=== PATIENT | female | born 1965 | race Caucasian/White ===

== ENCOUNTER 2017-03-17 16:05 | Emergency (ER) | payer MEDICAID ==
[~2017-03-17] VITALS: Ht 154.9 cm; Wt 55.3 kg
[~2017-03-17 16:05] MED LIST: ALBUAER3 IN; ATOR10TA52 PO; FENO1TAB42 PO; INSUINJ47 IJ; LIS20T PO; OMEP20CA74 PO; PIOG15TA46 OR; TICA90TA PO
[2017-03-17] MEDS ORDERED: cloNIDine HCL 0.1 MG TAB ONE (16:19)
[2017-03-17] MEDS ORDERED: cloNIDine HCL 0.1 MG TAB PO ONE (16:30)
[2017-03-17 17:31] LABS: Basophils # (auto) 0 uL; Basophils % (auto) 0.1 % (0.0-2.0); Eosinophils # (auto) 0 uL; Eosinophils % (auto) 0.6 % (0.0-7.0); Hematocrit 36.4 % (36.0-46.0); Lymphocytes # (auto) 1.8 uL; Lymphocytes % (auto) 40.1 % (10.0-50.0); Mean Corpuscular Hemoglobin 29.7 pg (28.0-32.0); Mean Corpuscular Volume 89.9 fL (80.0-100.0); Monocytes # (auto) 0.4 uL; Monocytes % (auto) 8.3 % (0.0-12.0); Neutrophils # (auto) 2.3 uL; Neutrophils % (auto) 50.9 % (37.0-80.0); Nucleated Red Blood Cells % 0.1 %; Platelet Count (auto) 133 10^3/uL (140-450); Red Blood Cells 4.04 10^6/uL (4.0-5.20); Red Cell Distribution Width 13.5 % (11.8-14.3); White Blood Cell 4.5 10^3/uL (4.4-10.8)
[2017-03-17 18:16] LABS: Albumin 3.3 g/dL (3.4-5.0); BUN/Creatinine Ratio 14.1; Bilirubin, Total 0.2 mg/dL (0.2-1.0); Calcium 8.5 mg/dL (8.5-10.1); Potassium 3.4 mmol/L (3.5-5.1); Total Protein 8.2 g/dL (6.4-8.2)
[2017-03-17 18:49] VITALS: BP 140/70
[2017-03-17 19:29] LABS: Urine Bacteria FEW /hpf (None Seen); Urine Blood Negative /uL (Negative); Urine Hyaline Cast FEW /lpf (0 - 2); Urine Specific Gravity 1.015 (1.001-1.035); Urine WBC 2 /hpf (0 - 5)
== END 2017-03-17 20:03 | disposition left against medical advice (07) ==
LOC: ER 16:05
DX: R11.2 Nausea with vomiting, unspecified (principal); R05 Cough; Z53.21 Procedure and treatment not carried out due to patient leaving prior to being seen by health care provider
CPT/HCPCS: 36415; 80053; 81001; 85025

== ENCOUNTER 2019-06-10 18:23 | Inpatient (IN) | payer MEDICAID ==
[~2019-06-10] VITALS: Ht 152.4 cm; Wt 58.0 kg
[~2019-06-10 18:23] MED LIST changes: +FENO145T27 PO; -FENO1TAB42 PO; -INSUINJ47 IJ; +INSUINJ47 SC; -PIOG15TA46 OR; +PIOG1TAB36 OR
[2019-06-10] MEDS ORDERED: cloNIDine HCL 0.1 MG TAB PO ONE (19:15)
[2019-06-10 19:55] LABS: Basophils # (auto) 0 10 ^3/uL (0-0.2); Basophils % (auto) 0.5 % (0.0-2.0); Eosinophils # (auto) 0 10 ^3/uL (0-0.8); Eosinophils % (auto) 0.4 % (0.0-7.0); Hemoglobin 10.8 g/dL (12.2-16.2); Lymphocytes # (auto) 1.1 10 ^3/uL (0.4-5.4); Lymphocytes % (auto) 15.1 % (10.0-50.0); Mean Corpuscular Hemoglobin 29.1 pg (28.0-32.0); Mean Corpuscular Hgb Conc. 32.8 g/dL (32.0-36.0); Mean Corpuscular Volume 88.6 fL (80.0-100.0); Monocytes # (auto) 0.4 10 ^3/uL (0-1.3); Monocytes % (auto) 5.7 % (0.0-12.0); Neutrophils # (auto) 5.7 10 ^3/uL (1.6-8.6); Neutrophils % (auto) 78.3 % (37.0-80.0); Nucleated Red Blood Cells % 0.1 %; Platelet Count (auto) 139 10^3/uL (140-450); Red Blood Cells 3.72 10^6/uL (4.0-5.20); Red Cell Distribution Width 13.9 % (11.8-14.3); White Blood Cell 7.3 10^3/uL (4.4-10.8)
[2019-06-10 20:08] LABS: Calcium 8.2 mg/dL (8.5-10.1); Potassium 3.6 mmol/L (3.5-5.1)
[2019-06-10 20:12] LABS: INR 1.03 (0.9-1.15); Partial Thromboplastin Time 26.2 sec (23.64-32.05)
[2019-06-10 20:27] LABS: Bilirubin, Total 0.3 mg/dL (0.2-1.0); Total Protein 7.2 g/dL (6.4-8.2)
[2019-06-10] MEDS ORDERED: FUROSEMIDE 20 MG/2 ML VIAL ONE (21:43)
[2019-06-10] MEDS ORDERED: FUROSEMIDE 100 MG/10ML VIAL IV ONE (21:45)
[2019-06-10] MEDS ORDERED: AZITHROMYCIN 500MG/ 250ML 250 ML IV ONE (21:45)
[2019-06-10] MEDS ORDERED: cefTRIAXone 1GM/50ML D5W 50 ML IV ONE (21:45)
[2019-06-10] MEDS ORDERED: ENOXAPARIN SOD 60 MG/0.6 ML SYRINGE SC ONE (21:45)
[2019-06-10 22:06] LABS: Urine Bacteria NONE SEEN /hpf (None Seen); Urine Blood 1+ /uL (Negative); Urine Hyaline Cast FEW /lpf (0 - 2); Urine Specific Gravity 1.016 (1.001-1.035); Urine WBC 2 /hpf (0 - 5)
[2019-06-10] MEDS ORDERED: MORPHINE SULF INJ 2 MG/ML SYRINGE 1ML IV PRN (22:30)
[2019-06-10] MEDS ORDERED: DEXTROSE (50%) 50ML SYRG IV PRN (22:30)
[2019-06-10] MEDS ORDERED: TEMAZEPAM 15 MG CAP PO PRN (22:30)
[2019-06-10] MEDS ORDERED: NITROGLYCERIN 0.4 MG SL TAB SL PRN (22:30)
[2019-06-10 23:33] LABS: CRP High Sensitivity 0.34 mg/dL (< 0.3); Magnesium 2.2 mg/dL (1.6-2.6)
[2019-06-10 23:37] VITALS: BP 205/103
[2019-06-11] MEDS ORDERED: POTASSIUM CHL 20MEQ/100ML 100 ML IV SCH
[2019-06-11 00:50] VITALS: BP 142/77
[2019-06-11] MEDS ORDERED: TRAM50TA2 PO (01:07)
[2019-06-11 04:00] VITALS: BP 148/90
[2019-06-11] MEDS: ACCU-CHEK COMFORT CURVE STRIP VI SCH ×5 (05:24→23:59)
[2019-06-11] MEDS: InsuLIN REG 1unit/0.01ml Soln (100units/ml) SC SCH ×4 (05:39→18:00)
[2019-06-11] MEDS ORDERED: ALBUTEROL SULF HFA 90MCG INH 200DOSE IN SCH (06:00)
[2019-06-11] MEDS ORDERED: FUROSEMIDE 20 MG/2 ML VIAL IV SCH (06:00)
[2019-06-11] MEDS ORDERED: ENOXAPARIN SOD 100 MG/1 ML SYRINGE SC ONE (06:15)
[2019-06-11 06:43] LABS: Basophils # (auto) 0 10 ^3/uL (0-0.2); Basophils % (auto) 0.5 % (0.0-2.0); Eosinophils # (auto) 0.1 10 ^3/uL (0-0.8); Eosinophils % (auto) 1.6 % (0.0-7.0); Hematocrit 27.7 % (36.0-46.0); Hemoglobin 9.2 g/dL (12.2-16.2); Lymphocytes # (auto) 1.6 10 ^3/uL (0.4-5.4); Lymphocytes % (auto) 38.7 % (10.0-50.0); Mean Corpuscular Hemoglobin 29.5 pg (28.0-32.0); Mean Corpuscular Hgb Conc. 33.2 g/dL (32.0-36.0); Mean Corpuscular Volume 88.8 fL (80.0-100.0); Monocytes # (auto) 0.4 10 ^3/uL (0-1.3); Neutrophils # (auto) 2.1 10 ^3/uL (1.6-8.6); Neutrophils % (auto) 50.2 % (37.0-80.0); Nucleated Red Blood Cells % 0.1 %; Platelet Count (auto) 115 10^3/uL (140-450); Red Blood Cells 3.13 10^6/uL (4.0-5.20); Red Cell Distribution Width 13.5 % (11.8-14.3); White Blood Cell 4.2 10^3/uL (4.4-10.8)
[2019-06-11 07:02] LABS: Albumin 2.4 g/dL (3.4-5.0); Calcium 7.8 mg/dL (8.5-10.1); Potassium 3.5 mmol/L (3.5-5.1)
[2019-06-11 07:06] LABS: Bilirubin, Total 0.2 mg/dL (0.2-1.0); Total Protein 5.9 g/dL (6.4-8.2)
[2019-06-11 08:00] VITALS: BP 146/79
[2019-06-11] MEDS: cefTRIAXone 1GM/50ML D5W 50 ML IV SCH (09:38)
[2019-06-11] MEDS: TICAGRELOR 90 MG TAB PO SCH ×2 (09:39→22:16)
[2019-06-11] MEDS: AZITHROMYCIN 500MG/ 250ML 250 ML IV SCH (09:39)
[2019-06-11] MEDS ORDERED: PANTOPRAZOLE 40 MG TAB PO SCH (10:00)
[2019-06-11] MEDS ORDERED: ZINC SULFATE 220mg CAP or TAB PO SCH (10:00)
[2019-06-11] MEDS ORDERED: ASPirin 81 mg TAB PO SCH (10:00)
[2019-06-11] MEDS ORDERED: ASCORBIC ACID 1,000 MG TAB PO SCH (10:00)
[2019-06-11] MEDS ORDERED: LISINOPRIL 20 MG TAB PO SCH (10:00)
[2019-06-11] MEDS ORDERED: CHOLECALCIFEROL (VITD3) 1,000IU=25mCg TAB PO SCH (10:00)
[2019-06-11] MEDS ORDERED: [UNRECOGNIZED DRUG - CODE] PO (11:02)
[2019-06-11] MEDS ORDERED: ALBUAER3 IN (11:03)
[2019-06-11] MEDS ORDERED: INSUINJ48 SC (11:05)
[2019-06-11 13:00] VITALS: BP 141/74
[2019-06-11] MEDS ORDERED: ALBUTEROL SULF 2.5 MG/0.5ML(0.5%) NEB SOLN NEB PRN (14:15)
[2019-06-11] MEDS ORDERED: IPRATROPIUM BROM 0.5 MG/2.5ML INH SOL NEB PRN (14:15)
[2019-06-11] MEDS ORDERED: CARVEDILOL 3.125 MG TAB PO ONE (14:15)
[2019-06-11 21:24] VITALS: BP 154/82
[2019-06-11] MEDS: CARVEDILOL 3.125 MG TAB PO SCH (22:15)
[2019-06-11] MEDS: ATORVASTATIN 20 MG TAB PO SCH (22:16)
[2019-06-11] MEDS: ONDANSETRON HCL 4 MG/2 ML VIAL IV PRN (22:17)
[2019-06-12] MEDS: InsuLIN REG 1unit/0.01ml Soln (100units/ml) SC SCH ×2 (00:13→05:45)
[2019-06-12] MEDS: ACCU-CHEK COMFORT CURVE STRIP VI SCH ×2 (00:13→05:44)
[2019-06-12 05:00] VITALS: BP 146/74
[2019-06-12 05:23] LABS: Basophils # (auto) 0 10 ^3/uL (0-0.2); Basophils % (auto) 0.6 % (0.0-2.0); Eosinophils # (auto) 0.1 10 ^3/uL (0-0.8); Eosinophils % (auto) 1.6 % (0.0-7.0); Hemoglobin 9.9 g/dL (12.2-16.2); Lymphocytes # (auto) 1.2 10 ^3/uL (0.4-5.4); Lymphocytes % (auto) 26.4 % (10.0-50.0); Mean Corpuscular Hemoglobin 29.3 pg (28.0-32.0); Mean Corpuscular Volume 88.8 fL (80.0-100.0); Monocytes # (auto) 0.4 10 ^3/uL (0-1.3); Monocytes % (auto) 8.6 % (0.0-12.0); Neutrophils # (auto) 2.8 10 ^3/uL (1.6-8.6); Neutrophils % (auto) 62.8 % (37.0-80.0); Nucleated Red Blood Cells % 0.1 %; Platelet Count (auto) 118 10^3/uL (140-450); Red Blood Cells 3.38 10^6/uL (4.0-5.20); Red Cell Distribution Width 13.6 % (11.8-14.3); White Blood Cell 4.5 10^3/uL (4.4-10.8)
[2019-06-12 05:43] LABS: Calcium 7.8 mg/dL (8.5-10.1); Potassium 3.6 mmol/L (3.5-5.1)
[2019-06-12 05:48] LABS: BUN/Creatinine Ratio 16.7
[2019-06-12] MEDS: cefTRIAXone 1GM/50ML D5W 50 ML IV SCH (07:57)
[2019-06-12 08:52] VITALS: BP 153/77
[2019-06-12] MEDS ORDERED: ADENOSINE 46 MG in GIVE UN-DILUTED 0 ML IV STA (09:59)
[2019-06-12] MEDS ORDERED: PNEUMOCOCCAL VACC POLYS 25 MCG/0.5 ML VIAL IM SCH (10:00)
[2019-06-12] MEDS: TICAGRELOR 90 MG TAB PO SCH ×2 (10:00→21:24)
[2019-06-12] MEDS: CARVEDILOL 3.125 MG TAB PO SCH ×2 (10:00→21:24)
[2019-06-12] MEDS: ASPirin 81 mg TAB PO SCH (10:00)
[2019-06-12] MEDS ORDERED: cloNIDine HCL 0.1 MG TAB PO ONE (11:15)
[2019-06-12 12:23] LABS: Hepatitis B Surface Antibody Positive
[2019-06-12] MEDS: AZITHROMYCIN 500MG/ 250ML 250 ML IV SCH (12:37)
[2019-06-12] MEDS: ENOXAPARIN SOD 30 MG/0.3 ML SYRINGE SC SCH (12:38)
[2019-06-12] MEDS: FUROSEMIDE 100 MG/10ML VIAL IV SCH (12:38)
[2019-06-12 13:01] LABS: Hepatitis A Total Antibody Negative
[2019-06-12 13:09] VITALS: BP 170/87
[2019-06-12 13:23] LABS: Hepatitis B Core Total AB Negative; Hepatitis B Surface Antigen Negative (Negative); Hepatitis C Antibody Negative (Negative)
[2019-06-12 16:39] VITALS: BP 148/80
[2019-06-12] MEDS: ACETAMINOPHEN 325 MG TAB PO PRN (17:42)
[2019-06-12] MEDS ORDERED: amLODIPine BESYLATE 5 MG TAB PO ONE (20:45)
[2019-06-12] MEDS ORDERED: hydrALAZINE HCL 25 MG TAB PO PRN (20:45)
[2019-06-12] MEDS: ATORVASTATIN 20 MG TAB PO SCH (21:22)
[2019-06-12 22:59] VITALS: BP 149/79
[2019-06-13] VITALS (7 sets, daily range): BP systolic 145–189; BP diastolic 78–96
[2019-06-13 04:23] LABS: Amphetamine Screen, Urine NEGATIVE (NEGATIVE); Barbiturate Scree,Urine NEGATIVE (NEGATIVE); Benzodiazephine Screen, Urine NEGATIVE (NEGATIVE); Cannabinoid Screen, Urine NEGATIVE (NEGATIVE); Cocaine Screen, Urine NEGATIVE (NEGATIVE); Opiate Scree,Urine NEGATIVE (NEGATIVE); Phencyclidine Screen, Urine NEGATIVE (NEGATIVE); Protein, Urine 130.2 mg/dL (0.0-11.9)
[2019-06-13 05:19] LABS: Hemoglobin 10.2 g/dL (12.2-16.2)
[2019-06-13 05:31] LABS: Calcium 7.9 mg/dL (8.5-10.1); Potassium 3.4 mmol/L (3.5-5.1)
[2019-06-13] MEDS: cefTRIAXone 1GM/50ML D5W 50 ML IV SCH (09:35)
[2019-06-13] MEDS: ASPirin 81 mg TAB PO SCH (10:00)
[2019-06-13] MEDS: amLODIPine BESYLATE 5 MG TAB PO SCH (10:00)
[2019-06-13] MEDS: CARVEDILOL 3.125 MG TAB PO SCH ×2 (10:00→21:36)
[2019-06-13] MEDS: ENOXAPARIN SOD 30 MG/0.3 ML SYRINGE SC SCH (10:00)
[2019-06-13] MEDS: FAMOTIDINE 20 MG TAB PO SCH (10:00)
[2019-06-13] MEDS: TICAGRELOR 90 MG TAB PO SCH ×2 (10:00→21:29)
[2019-06-13] MEDS: FUROSEMIDE 100 MG/10ML VIAL IV SCH (11:34)
[2019-06-13] MEDS: AZITHROMYCIN 500MG/ 250ML 250 ML IV SCH (11:35)
[2019-06-13] MEDS: ACETAMINOPHEN 325 MG TAB PO PRN (11:44)
[2019-06-13] MEDS ORDERED: POTASSIUM CHL 10 Meq TABLET PO ONE ×2 (12:45→14:30)
[2019-06-13] MEDS: ONDANSETRON HCL 4 MG/2 ML VIAL IV PRN (14:39)
[2019-06-13] MEDS: hydrALAZINE HCL 25 MG TAB PO SCH ×2 (18:01→23:46)
[2019-06-13] MEDS: ATORVASTATIN 20 MG TAB PO SCH (21:29)
[2019-06-14 05:00] VITALS: BP 140/71
[2019-06-14] MEDS: hydrALAZINE HCL 25 MG TAB PO SCH ×2 (05:22→12:37)
[2019-06-14 08:00] VITALS: BP 145/87
[2019-06-14 09:00] VITALS: BP 145/87
[2019-06-14] MEDS: cefTRIAXone 1GM/50ML D5W 50 ML IV SCH (09:26)
[2019-06-14] MEDS: ENOXAPARIN SOD 30 MG/0.3 ML SYRINGE SC SCH (10:00)
[2019-06-14 10:10] LABS: BUN/Creatinine Ratio 16.4; Potassium 3.8 mmol/L (3.5-5.1)
[2019-06-14] MEDS: AZITHROMYCIN 500MG/ 250ML 250 ML IV SCH (10:51)
[2019-06-14] MEDS: FUROSEMIDE 100 MG/10ML VIAL IV SCH (10:51)
[2019-06-14] MEDS: TICAGRELOR 90 MG TAB PO SCH (10:53)
[2019-06-14] MEDS: CARVEDILOL 3.125 MG TAB PO SCH (10:54)
[2019-06-14] MEDS: FAMOTIDINE 20 MG TAB PO SCH (10:55)
[2019-06-14] MEDS: amLODIPine BESYLATE 5 MG TAB PO SCH (10:55)
[2019-06-14 12:42] VITALS: BP 179/90
[2019-06-14 15:29] VITALS: BP 132/68
[2019-06-14 17:00] VITALS: BP 125/60
[2019-06-15] MEDS ORDERED: PANTOPRAZOLE 40 MG TAB PO SCH (10:00)
[2019-06-16 10:15] LABS: Hepatitis B Surface Antibody Positive
[2019-06-16 11:26] LABS: Hepatitis B Surface Antigen Negative (Negative); Hepatitis C Antibody Negative (Negative)
== END 2019-06-14 18:45 | disposition home or self-care (01) | DRG 194 ==
LOC: ER 18:23 → TELE 18:24 → TELE-EAST 23:52 → TELE-CENTR 06-11 17:00
PROVIDERS: ADMIT Nurse Practitioner; ATTEND Internal Medicine
DX: I13.0 Hypertensive heart and chronic kidney disease with heart failure and stage 1 through stage 4 chronic kidney disease, or unspecified chronic kidney disease (principal); J96.20 Acute and chronic respiratory failure, unspecified whether with hypoxia or hypercapnia; I21.A1 Myocardial infarction type 2; N17.0 Acute kidney failure with tubular necrosis; J18.9 Pneumonia, unspecified organism; D61.818 Other pancytopenia; J91.8 Pleural effusion in other conditions classified elsewhere; I50.43 Acute on chronic combined systolic (congestive) and diastolic (congestive) heart failure; E11.22 Type 2 diabetes mellitus with diabetic chronic kidney disease; I25.5 Ischemic cardiomyopathy; N18.4 Chronic kidney disease, stage 4 (severe); I25.10 Atherosclerotic heart disease of native coronary artery without angina pectoris; J45.909 Unspecified asthma, uncomplicated; E78.5 Hyperlipidemia, unspecified; G47.00 Insomnia, unspecified; R63.4 Abnormal weight loss; I16.1 Hypertensive emergency; N13.2 Hydronephrosis with renal and ureteral calculous obstruction; J98.11 Atelectasis; D73.4 Cyst of spleen; B19.10 Unspecified viral hepatitis B without hepatic coma; D63.8 Anemia in other chronic diseases classified elsewhere; E87.6 Hypokalemia; Z88.0 Allergy status to penicillin; Z95.5 Presence of coronary angioplasty implant and graft; Z03.818 Encounter for observation for suspected exposure to other biological agents ruled out; Z88.2 Allergy status to sulfonamides; Z79.899 Other long term (current) drug therapy; Z90.710 Acquired absence of both cervix and uterus; Z82.5 Family history of asthma and other chronic lower respiratory diseases; Z83.3 Family history of diabetes mellitus; Z82.49 Family history of ischemic heart disease and other diseases of the circulatory system; Z82.0 Family history of epilepsy and other diseases of the nervous system; Z87.891 Personal history of nicotine dependence; Z68.25 Body mass index [BMI] 25.0-25.9, adult
CPT/HCPCS: 36415; 71045; 74176; 76775; 78452; 80048; 80053; 80061; 80307; 81001; 82270; 82570; 82728; 82962; 83036; 83540; 83550; 83615; 83735; 83880; 84156; 84443; 84484; 85014; 85018; 85025; 85045; 85379; 85610; 85730; 86038; 86141; 86704; 86706; 86708; 86803; 87040; 87045; 87070; 87340; 87427; 87804; 87880; 93005; 93017; 93306; 93970; 94640; G0378; J0153; J0696; J1815; J2405

== ENCOUNTER 2019-07-09 11:40 | Emergency (ER) | payer MEDICAID ==
[~2019-07-09] VITALS: Ht 154.9 cm; Wt 53.1 kg
[~2019-07-09 11:40] MED LIST changes: +INSUINJ48 SC; -PIOG1TAB36 OR; +PIOG1TAB36 PO; +TRAM50TA2 PO; +[UNRECOGNIZED DRUG - CODE] PO
[2019-07-09 12:06] LABS: Urine WBC None Seen /hpf (0 - 5)
[2019-07-09 12:41] LABS: Urine Bacteria FEW /hpf (None Seen); Urine Blood 1+ /uL (Negative); Urine Hyaline Cast FEW /lpf (0 - 2); Urine Specific Gravity 1.022 (1.001-1.035)
[2019-07-09] MEDS ORDERED: ONDANSETRON ODT 4 MG TAB PO ONE (13:30)
[2019-07-09] MEDS ORDERED: HYDROcodone-ACET 5/325MG TAB PO ONE (13:30)
[2019-07-09] MEDS ORDERED: TAMSULOSIN HYDROCHLORIDE 0.4 MG CAP PO ONE (13:30)
[2019-07-09] MEDS ORDERED: cloNIDine HCL 0.1 MG TAB PO ONE (14:15)
[2019-07-09 15:11] VITALS: BP 156/77
== END 2019-07-09 15:23 | disposition home or self-care (01) ==
LOC: ER 11:40
DX: M54.5 Low back pain (principal); I12.9 Hypertensive chronic kidney disease with stage 1 through stage 4 chronic kidney disease, or unspecified chronic kidney disease; E11.22 Type 2 diabetes mellitus with diabetic chronic kidney disease; N18.9 Chronic kidney disease, unspecified; E78.5 Hyperlipidemia, unspecified; J45.909 Unspecified asthma, uncomplicated; Z87.442 Personal history of urinary calculi; Z90.710 Acquired absence of both cervix and uterus; Z79.4 Long term (current) use of insulin; Z79.899 Other long term (current) drug therapy; Z88.0 Allergy status to penicillin; Z88.2 Allergy status to sulfonamides
CPT/HCPCS: 81001; 99284; Q0162

== ENCOUNTER 2019-07-13 20:05 | Inpatient (IN) | payer MEDICAID ==
[~2019-07-13] VITALS: Ht 154.9 cm; Wt 58.4 kg
[2019-07-13] MEDS ORDERED: cloNIDine HCL 0.1 MG TAB ONE (20:26)
[2019-07-13] MEDS ORDERED: cloNIDine HCL 0.1 MG TAB PO ONE (20:30)
[2019-07-13 20:44] LABS: Basophils # (auto) 0 10 ^3/uL (0-0.2); Basophils % (auto) 0.5 % (0.0-2.0); Eosinophils # (auto) 0 10 ^3/uL (0-0.8); Eosinophils % (auto) 0.2 % (0.0-7.0); Hematocrit 33.2 % (36.0-46.0); Lymphocytes % (auto) 14.3 % (10.0-50.0); Mean Corpuscular Hemoglobin 29.5 pg (28.0-32.0); Mean Corpuscular Hgb Conc. 33.1 g/dL (32.0-36.0); Mean Corpuscular Volume 89.1 fL (80.0-100.0); Monocytes # (auto) 0.5 10 ^3/uL (0-1.3); Monocytes % (auto) 7.2 % (0.0-12.0); Neutrophils # (auto) 5.2 10 ^3/uL (1.6-8.6); Neutrophils % (auto) 77.8 % (37.0-80.0); Platelet Count (auto) 146 10^3/uL (140-450); Red Blood Cells 3.73 10^6/uL (4.0-5.20); Red Cell Distribution Width 14.2 % (11.8-14.3); White Blood Cell 6.7 10^3/uL (4.4-10.8)
[2019-07-13 21:09] LABS: Albumin 3.2 g/dL (3.4-5.0); Calcium 8.2 mg/dL (8.5-10.1); Potassium 3.3 mmol/L (3.5-5.1)
[2019-07-13 21:14] LABS: BUN/Creatinine Ratio 17.2; Bilirubin, Total 0.4 mg/dL (0.2-1.0); Total Protein 7.2 g/dL (6.4-8.2)
[2019-07-13] MEDS ORDERED: FUROSEMIDE 40 MG/4 ML VIAL IV ONE (23:00)
[2019-07-14] MEDS ORDERED: ENOXAPARIN SOD 100 MG/1 ML SYRINGE SC ONE (01:45)
[2019-07-14] MEDS ORDERED: HYDROcodone-ACET 5/325MG TAB PO PRN (02:30)
[2019-07-14] MEDS ORDERED: NITROGLYCERIN 0.4 MG SL TAB SL PRN (02:30)
[2019-07-14] MEDS ORDERED: DEXTROSE (50%) 50ML SYRG IV PRN ×2 (02:30→16:30)
[2019-07-14] MEDS ORDERED: ONDANSETRON HCL 4 MG/2 ML VIAL IV PRN ×2 (02:30)
[2019-07-14] MEDS ORDERED: ACETAMINOPHEN 325 MG TAB PO PRN ×2 (02:30)
[2019-07-14] MEDS ORDERED: DOCUSATE SOD 100 MG CAP PO PRN (02:30)
[2019-07-14] MEDS ORDERED: MORPHINE SULF INJ 2 MG/ML SYRINGE 1ML IV PRN ×2 (02:30)
[2019-07-14 02:46] LABS: INR 1.15 (0.9-1.15); Partial Thromboplastin Time 24.8 sec (23.64-32.05)
[2019-07-14 02:59] LABS: Urine Bacteria FEW /hpf (None Seen); Urine Blood 1+ /uL (Negative); Urine Hyaline Cast MANY /lpf (0 - 2); Urine Specific Gravity 1.019 (1.001-1.035); Urine WBC 2 /hpf (0 - 5)
[2019-07-14] MEDS: SODIUM CHLORIDE 0.9% 1,000 ML IV SCH ×2 (03:49→18:18)
[2019-07-14] MEDS: InsuLIN REG 1unit/0.01ml Soln (100units/ml) SC SCH ×3 (03:50→17:53)
[2019-07-14] MEDS: ACCU-CHEK COMFORT CURVE STRIP VI SCH ×3 (03:50→17:53)
[2019-07-14] MEDS ORDERED: InsuLIN REG 1unit/0.01ml Soln (100units/ml) SC SCH (06:00)
[2019-07-14 10:00] LABS: Magnesium 1.7 mg/dL (1.6-2.6)
[2019-07-14] MEDS ORDERED: OMEPRAZOLE 20MG/10ML ORAL SUSP PO SCH (10:00)
[2019-07-14] MEDS ORDERED: ASPirin 325 MG TAB PO SCH (10:00)
[2019-07-14] MEDS ORDERED: CARVEDILOL 3.125 MG TAB PO SCH (10:00)
[2019-07-14] MEDS ORDERED: CLOPIDOGREL BISULFATE 75 MG TAB PO SCH (10:00)
[2019-07-14] MEDS ORDERED: LISINOPRIL 20 MG TAB PO SCH (10:00)
[2019-07-14] MEDS ORDERED: FUROSEMIDE 40 MG/4 ML VIAL IV SCH (10:00)
[2019-07-14] MEDS: ASPirin 81 mg TAB PO SCH (10:04)
[2019-07-14] MEDS: DOCUSATE SOD 100 MG CAP PO SCH (10:04)
[2019-07-14] MEDS: TICAGRELOR 90 MG TAB PO SCH ×2 (10:05→22:28)
[2019-07-14 10:06] LABS: BUN/Creatinine Ratio 18.1; Calcium 7.9 mg/dL (8.5-10.1); Potassium 3.3 mmol/L (3.5-5.1)
[2019-07-14] MEDS ORDERED: HEPARIN DRIP/D5W 100UNITS/ML 250 ML IV SCH ×2 (10:19→10:45)
[2019-07-14] MEDS ORDERED: NITROGLYCERIN 0.4MG/HR TOPICAL PATCH TD ONE (10:30)
[2019-07-14] MEDS ORDERED: HEPARIN SODIUM (PORCINE) 5000 UNITS/ML 1ML VIAL IV ONE (10:30)
[2019-07-14 10:51] LABS: Protein, Urine 811.9 mg/dL (0.0-11.9)
[2019-07-14] MEDS: ACETYLCYSTEINE ORAL for CIN 20%(200MG/ML) 4ML PO SCH ×2 (11:15→22:29)
[2019-07-14 11:43] LABS: Basophils # (auto) 0 10 ^3/uL (0-0.2); Basophils % (auto) 0.5 % (0.0-2.0); Eosinophils # (auto) 0 10 ^3/uL (0-0.8); Eosinophils % (auto) 0.4 % (0.0-7.0); Hematocrit 29.1 % (36.0-46.0); Hemoglobin 9.8 g/dL (12.2-16.2); Lymphocytes # (auto) 1.2 10 ^3/uL (0.4-5.4); Lymphocytes % (auto) 19.9 % (10.0-50.0); Mean Corpuscular Hgb Conc. 33.8 g/dL (32.0-36.0); Mean Corpuscular Volume 88.7 fL (80.0-100.0); Monocytes # (auto) 0.5 10 ^3/uL (0-1.3); Monocytes % (auto) 7.9 % (0.0-12.0); Neutrophils # (auto) 4.1 10 ^3/uL (1.6-8.6); Neutrophils % (auto) 71.3 % (37.0-80.0); Platelet Count (auto) 113 10^3/uL (140-450); Red Blood Cells 3.28 10^6/uL (4.0-5.20); Red Cell Distribution Width 14.1 % (11.8-14.3); White Blood Cell 5.8 10^3/uL (4.4-10.8)
[2019-07-14] MEDS ORDERED: hydrALAZINE HCL 20 MG/ML VL IV PRN (11:45)
[2019-07-14] MEDS ORDERED: PROMETHAZINE HCL 25 MG/ML 1ML IV ONE (11:45)
[2019-07-14] MEDS ORDERED: MAGNESIUM OXIDE 400 MG TAB PO ONE (11:45)
[2019-07-14] MEDS ORDERED: POTASSIUM CHL 20 Meq TABLET PO ONE ×2 (11:45→15:00)
[2019-07-14 11:59] LABS: INR 1.15 (0.9-1.15); Partial Thromboplastin Time 28.2 sec (23.64-32.05)
[2019-07-14] MEDS ORDERED: LIDOCAINE 2%HCL (LOCAL ANESTH.) INJ 20ML MDV ONE (12:28)
[2019-07-14] MEDS ORDERED: IODIXANOL 320MG/ML 100ML BTL IV ONE ×2 (12:28→12:46)
[2019-07-14] MEDS ORDERED: VERAPAMIL 2.5MG/ML INJ 2ML VIAL IV ONE (12:32)
[2019-07-14] MEDS ORDERED: ANGIOMAX 250 MG VIAL IV ONE (12:32)
[2019-07-14] MEDS ORDERED: MIDAZOLAM HCL 1MG/1ML-2 ML VIAL ONE (12:32)
[2019-07-14] MEDS ORDERED: HEPARIN SODIUM (PORCINE) 5000 UNITS/ML 1ML VIAL ONE (12:32)
[2019-07-14] MEDS ORDERED: fentaNYL CITRATE 100 MCG/2 ML VL ONE (12:32)
[2019-07-14] MEDS ORDERED: SODIUM CHL 0.9% 50 ML ONE (12:32)
[2019-07-14] MEDS ORDERED: hydrALAZINE HCL 20 MG/ML VL ONE (12:41)
[2019-07-14] MEDS ORDERED: diphenhdrAMINE HCL 50 MG/1 ML VL ONE (13:02)
[2019-07-14] MEDS ORDERED: ASPirin 325 MG TAB ONE (13:11)
[2019-07-14] MEDS ORDERED: CLOPIDOGREL BISULFATE 75 MG TAB ONE (13:11)
[2019-07-14] MEDS ORDERED: SODIUM CHL 0.9% 500 ML IV ONE (14:00)
[2019-07-14] MEDS ORDERED: hydrALAZINE HCL 25 MG TAB PO SCH (14:00)
[2019-07-14] MEDS ORDERED: cloNIDine HCL 0.1 MG TAB PO PRN (14:00)
[2019-07-14] MEDS ORDERED: TICA90TA PO (14:26)
[2019-07-14] MEDS ORDERED: InsuLIN REG 1unit/0.01ml Soln (100units/ml) ONE (14:41)
--- NOTE | 2019-07-14 16:17 | NUR ---
Telemetry admit from Hand Paster CARMEN CAVAZOS admitted to Telemetry unit after SBAR received. Patient oriented to Linda Tsang, RN primary RN, unit, room, bed, and unit policies regarding patient care and visiting hours. Patient now on continuous telemetry monitoring, tele box # 94. Patient placed on bedside oxygen, weighed by bedscale and encouraged to call if they need something. All questions and concerns addressed, patient verbalized understanding. Noted right wrist incision, vasc-band is in place. Will proceed to carry out vasc-band instructions as indicated. No sign of bleeding or hematoma formation to site.
[2019-07-14 17:03] VITALS: BP 145/76
[2019-07-14 17:14] VITALS: BP 145/76
--- NOTE | 2019-07-14 18:05 | NUR ---
Spoke to CEREAL SUPERVISOR Florentino Baum in regards to critical lab value Troponin 6.16. CEREAL SUPERVISOR made aware, no new orders received at this time.
--- NOTE | 2019-07-14 19:30 | NUR ---
Opening Shift Note Assumed care of patient, awake and alert. No S/S of distress/SOB or pain. Instructed on POC and to call for assist PRN. Bed in lowest locked position, call light within reach, side rails up x2, fall precautions in place. Will continue to monitor for changes Q1hr and PRN.
[2019-07-14 22:00] VITALS: BP 129/67
[2019-07-14] MEDS ORDERED: ATORVASTATIN 20 MG TAB PO SCH ×2 (22:00)
[2019-07-14] MEDS ORDERED: INSULIN NPH Isophane (HUMAN) 1unit/0.01ml Susp(100units/ml) SC SCH (22:00)
[2019-07-14] MEDS: CARVEDILOL 12.5 MG TAB PO SCH (22:28)
[2019-07-15] MEDS: ACCU-CHEK COMFORT CURVE STRIP VI SCH ×4 (00:01→18:00)
[2019-07-15] MEDS: InsuLIN REG 1unit/0.01ml Soln (100units/ml) SC SCH ×4 (00:03→18:00)
--- NOTE | 2019-07-15 02:40 | NUR ---
Critical lab Elevated troponin of 5.78. Spoke with hospitalist, STEPHANIE Jhaveri. Hospitalist aware of troponin trending down. No new orders received. Continue care.
--- NOTE | 2019-07-15 04:06 | NUR ---
Blood sugar Patient complaining of feeling diaphoretic. Blood sugar checked, low at 63. Juice and sandwich given. Will continue to monitor.
[2019-07-15 05:00] VITALS: BP 116/61
[2019-07-15 06:40] LABS: Basophils # (auto) 0 10 ^3/uL (0-0.2); Basophils % (auto) 0.3 % (0.0-2.0); Eosinophils # (auto) 0 10 ^3/uL (0-0.8); Eosinophils % (auto) 0.7 % (0.0-7.0); Hematocrit 29.9 % (36.0-46.0); Hemoglobin 9.8 g/dL (12.2-16.2); Lymphocytes # (auto) 0.4 10 ^3/uL (0.4-5.4); Lymphocytes % (auto) 7.2 % (10.0-50.0); Mean Corpuscular Hemoglobin 29.3 pg (28.0-32.0); Mean Corpuscular Hgb Conc. 32.8 g/dL (32.0-36.0); Mean Corpuscular Volume 89.3 fL (80.0-100.0); Monocytes # (auto) 0.4 10 ^3/uL (0-1.3); Monocytes % (auto) 7.3 % (0.0-12.0); Neutrophils # (auto) 5.1 10 ^3/uL (1.6-8.6); Neutrophils % (auto) 84.5 % (37.0-80.0); Platelet Count (auto) 124 10^3/uL (140-450); Red Blood Cells 3.35 10^6/uL (4.0-5.20); Red Cell Distribution Width 14.3 % (11.8-14.3)
[2019-07-15 07:05] LABS: Potassium 3.1 mmol/L (3.5-5.1)
[2019-07-15 07:15] LABS: BUN/Creatinine Ratio 17.3; Calcium 8.2 mg/dL (8.5-10.1)
--- NOTE | 2019-07-15 07:30 | NUR ---
Opening Shift Note Assumed care of patient, awake, alert oriented x4. No S/S of distress/SOB, reports 10/10 headache and requesting tylenol. Instructed on POC and to call for assist PRN. Bed in lowest locked position, call light within reach, side rails up x2, fall precautions in place. Will continue to monitor for changes Q1hr and PRN.
[2019-07-15 08:00] VITALS: BP 133/71
[2019-07-15] MEDS ORDERED: POTASSIUM CHL 20 Meq TABLET PO ONE (08:15)
[2019-07-15] MEDS: DOCUSATE SOD 100 MG CAP PO SCH (10:00)
[2019-07-15] MEDS ORDERED: NITROGLYCERIN 0.4MG/HR TOPICAL PATCH TD SCH (10:00)
[2019-07-15] MEDS ORDERED: ACETYLCYSTEINE ORAL for CIN 20%(200MG/ML) 4ML PO SCH (10:00)
[2019-07-15] MEDS ORDERED: amLODIPine BESYLATE 5 MG TAB PO SCH (10:00)
[2019-07-15] MEDS ORDERED: KETOROLAC TROMETH 30 MG/ML 1ML VIAL IV ONE (10:30)
[2019-07-15] MEDS: ASPirin 81 mg TAB PO SCH (10:39)
[2019-07-15] MEDS: TICAGRELOR 90 MG TAB PO SCH (10:39)
[2019-07-15] MEDS: CARVEDILOL 12.5 MG TAB PO SCH (10:39)
[2019-07-15] MEDS: ACETYLCYSTEINE ORAL for CIN 20%(200MG/ML) 4ML PO SCH (10:40)
[2019-07-15] MEDS ORDERED: ATOR40TA52 PO (10:47)
[2019-07-15] MEDS ORDERED: CARV25TA PO (10:47)
[2019-07-15] MEDS ORDERED: ASPI81CH43 PO (10:47)
[2019-07-15] MEDS ORDERED: AMLO10TA13 PO (10:47)
[2019-07-15] MEDS ORDERED: PANT40TA2 PO (10:51)
[2019-07-15] MEDS ORDERED: CLO01T PO (11:10)
[2019-07-15] MEDS: SODIUM CHLORIDE 0.9% 1,000 ML IV SCH (11:43)
--- NOTE | 2019-07-15 12:20 | NUR ---
graf catheter discontinued at this time. Will continue to monitor q1hr and prn
[2019-07-15 12:37] VITALS: BP 139/76
[2019-07-15 15:39] VITALS: BP 139/76
--- NOTE | 2019-07-15 19:20 | NUR ---
Opening Shift Note Patient awake and alert upon entering room. No S/S of distress/SOB or pain. Instructed on discharge plan in process from anson Mccabe RN. Both IVs discontinued, media monitor sent to color television console monitor, ID bands removed, POM obtained from pharmacy and back in patients possession, and all belongings collected and ready to go.
--- NOTE | 2019-07-15 20:07 | NUR ---
Patient DC'd off unit.
--- NOTE | 2019-07-16 08:11 | NUR ---
0811 07/16/19 Contacted [employer] at [phone] spoke with Harry the management manager, who stated patient did receive life vest prior to discharge.
== END 2019-07-15 20:07 | disposition home or self-care (01) | DRG 174 ==
LOC: ER 20:06 → TELE 20:07 → TELE-CENTR 07-14 16:21
PROVIDERS: ADMIT Hospitalist; ATTEND Internal Medicine
PROC: 4A023N7 Measurement of Cardiac Sampling and Pressure, Left Heart, Percutaneous Approach (ICD-10-PCS; principal; 2019-07-14)
PROC: 027034Z Dilation of Coronary Artery, One Artery with Drug-eluting Intraluminal Device, Percutaneous Approach (ICD-10-PCS; 2019-07-14)
PROC: B211YZZ Fluoroscopy of Multiple Coronary Arteries using Other Contrast (ICD-10-PCS; 2019-07-14)
PROC: B215YZZ Fluoroscopy of Left Heart using Other Contrast (ICD-10-PCS; 2019-07-14)
DX: I21.4 Non-ST elevation (NSTEMI) myocardial infarction (principal); I50.43 Acute on chronic combined systolic (congestive) and diastolic (congestive) heart failure; N17.9 Acute kidney failure, unspecified; E11.22 Type 2 diabetes mellitus with diabetic chronic kidney disease; N18.4 Chronic kidney disease, stage 4 (severe); I13.0 Hypertensive heart and chronic kidney disease with heart failure and stage 1 through stage 4 chronic kidney disease, or unspecified chronic kidney disease; I16.1 Hypertensive emergency; J44.9 Chronic obstructive pulmonary disease, unspecified; E44.1 Mild protein-calorie malnutrition; I16.0 Hypertensive urgency; E87.6 Hypokalemia; Z68.24 Body mass index [BMI] 24.0-24.9, adult; Z88.0 Allergy status to penicillin; Z88.2 Allergy status to sulfonamides; Z79.84 Long term (current) use of oral hypoglycemic drugs; Z79.4 Long term (current) use of insulin; Z79.899 Other long term (current) drug therapy; Z79.51 Long term (current) use of inhaled steroids; D63.8 Anemia in other chronic diseases classified elsewhere; I25.2 Old myocardial infarction; I25.10 Atherosclerotic heart disease of native coronary artery without angina pectoris; E11.65 Type 2 diabetes mellitus with hyperglycemia; Z83.3 Family history of diabetes mellitus; Z82.5 Family history of asthma and other chronic lower respiratory diseases
CPT/HCPCS: 36415; 71045; 80048; 80053; 80061; 81001; 82570; 82962; 83036; 83735; 83880; 84156; 84484; 85025; 85610; 85730; 87081; 92928; 93005; 93458; 96372; 96374; 96375; 99152; 99153; C1874; G0378; J1815; J1885; J2250; J2405; Q9967

== ENCOUNTER 2019-07-21 06:41 | Inpatient (IN) | payer MEDICAID ==
[~2019-07-21] VITALS: Ht 154.9 cm; Wt 62.6 kg
[~2019-07-21 06:41] MED LIST changes: +AMLO10TA13 PO; +ASPI81CH43 PO; -ATOR10TA52 PO; +ATOR40TA52 PO; +CARV25TA PO; +CLO01T PO; -LIS20T PO; -OMEP20CA74 PO; +PANT40TA2 PO; -PIOG1TAB36 PO
[2019-07-21] MEDS ORDERED: SODIUM CHLORIDE 0.9% 1,000 ML IV ONE (06:52)
[2019-07-21] MEDS ORDERED: NITROGLYCERIN 0.4 MG SL TAB SL ONE (07:00)
[2019-07-21 07:50] LABS: Basophils # (auto) 0 10 ^3/uL (0-0.2); Basophils % (auto) 0.5 % (0.0-2.0); Eosinophils # (auto) 0.1 10 ^3/uL (0-0.8); Eosinophils % (auto) 1.7 % (0.0-7.0); Hematocrit 32.4 % (36.0-46.0); Hemoglobin 10.6 g/dL (12.2-16.2); Lymphocytes # (auto) 1.1 10 ^3/uL (0.4-5.4); Lymphocytes % (auto) 24.1 % (10.0-50.0); Mean Corpuscular Hemoglobin 29.2 pg (28.0-32.0); Mean Corpuscular Hgb Conc. 32.7 g/dL (32.0-36.0); Mean Corpuscular Volume 89.4 fL (80.0-100.0); Monocytes # (auto) 0.4 10 ^3/uL (0-1.3); Monocytes % (auto) 8.5 % (0.0-12.0); Neutrophils # (auto) 2.9 10 ^3/uL (1.6-8.6); Neutrophils % (auto) 65.2 % (37.0-80.0); Nucleated Red Blood Cells % 0.1 %; Platelet Count (auto) 129 10^3/uL (140-450); Red Blood Cells 3.63 10^6/uL (4.0-5.20); Red Cell Distribution Width 14.8 % (11.8-14.3); White Blood Cell 4.5 10^3/uL (4.4-10.8)
[2019-07-21 08:05] LABS: INR 1.07 (0.9-1.15); Partial Thromboplastin Time 26.2 sec (23.64-32.05)
[2019-07-21 08:06] LABS: Potassium 4.3 mmol/L (3.5-5.1)
[2019-07-21 08:19] LABS: BUN/Creatinine Ratio 18.6; Bilirubin, Total 0.2 mg/dL (0.2-1.0); Total Protein 6.9 g/dL (6.4-8.2)
[2019-07-21] MEDS ORDERED: ENOXAPARIN SOD 60 MG/0.6 ML SYRINGE SC ONE (08:30)
[2019-07-21] MEDS: TICAGRELOR 90 MG TAB PO SCH ×2 (10:00→21:17)
[2019-07-21] MEDS ORDERED: MORPHINE SULF INJ 2 MG/ML SYRINGE 1ML IV PRN (10:00)
[2019-07-21] MEDS ORDERED: DEXTROSE (50%) 50ML SYRG IV PRN (10:00)
[2019-07-21] MEDS ORDERED: ALBUTEROL SULF 2.5 MG/0.5ML(0.5%) NEB SOLN NEB PRN (10:00)
[2019-07-21] MEDS ORDERED: IPRATROPIUM BROM 0.5 MG/2.5ML INH SOL NEB PRN (10:00)
[2019-07-21] MEDS ORDERED: NITROGLYCERIN 0.4 MG SL TAB SL PRN (10:00)
[2019-07-21] MEDS ORDERED: hydrALAZINE HCL 20 MG/ML VL IV PRN (10:00)
[2019-07-21 10:08] VITALS: BP 137/71
--- NOTE | 2019-07-21 10:47 | NUR ---
Pt Arrived on Unit Pt arrived on unit from ED. Pt is a/ox4 with no s/s of distress or SOB. Pt was able to ambulate to bed with standby assistance. Pt is placed on 3L via NC. Safety measures initiated with call light within reach, bed in lowest position and side rails up. Will continue to monitor.
[2019-07-21] MEDS: ASPirin 81 mg TAB PO SCH (11:03)
[2019-07-21] MEDS: ISOSORBIDE MONONITRATE ER 60 MG TAB PO SCH (11:03)
--- NOTE | 2019-07-21 11:22 | NUR ---
Pt Off Unit for CT A/ox4 upon transfer. Addendum: 07/21/19 at 1137 by KRIS JENSEN RN RN Pt back on unit. A/Ox4
[2019-07-21] MEDS: ACCU-CHEK COMFORT CURVE STRIP VI SCH ×3 (11:23→22:00)
[2019-07-21] MEDS: InsuLIN REG 1unit/0.01ml Soln (100units/ml) SC SCH ×3 (11:35→22:00)
--- NOTE | 2019-07-21 11:47 | NUR ---
Critical Lab Troponin of 0.778 reported by lab; previous trop is 0.763. Paged supervisor travel information center hospitalist Addendum: 07/21/19 at 1152 by KRIS JENSEN RN RN STEPHANIE Good paged back. ELEVATOR REPAIRER HELPER made aware. Pending cardio consult. Will continue to monitor.
[2019-07-21 11:53] VITALS: BP 164/91
[2019-07-21] MEDS ORDERED: FUROSEMIDE 40 MG/4 ML VIAL IV ONE (12:45)
[2019-07-21 13:00] VITALS: BP 127/71
[2019-07-21] MEDS ORDERED: RANOLAZINE ER 500 MG TAB PO ONE (13:00)
--- NOTE | 2019-07-21 13:05 | NUR ---
Pt C/O Generalized Body Aches Pt c/o of generalized body pain 08/14. No pain medication available. Will page hospitalist.
[2019-07-21] MEDS: MORPHINE SULF INJ 2 MG/ML SYRINGE 1ML IV PRN ×3 (13:23→20:18)
[2019-07-21] MEDS: ONDANSETRON HCL 4 MG/2 ML VIAL IV PRN ×2 (13:23→19:48)
[2019-07-21] MEDS: hydrALAZINE HCL 25 MG TAB PO SCH ×2 (13:31→22:00)
--- NOTE | 2019-07-21 14:38 | NUR ---
Elevated Troponin Trop of 0.774 reported by lab. MDs are aware of elevated tropes. Current level is trending down. Will continue to monitor.
[2019-07-21] MEDS: HYDROcodone-ACET 5/325MG TAB PO PRN ×2 (14:53→21:25)
--- NOTE | 2019-07-21 15:02 | NUR ---
ss consult Per ss consult advanced directive information. RN has been provided advanced directive for patient. Addendum: 07/21/19 at 1503 by Hattie ROBERTS Amended: Links added.
--- NOTE | 2019-07-21 15:15 | NUR ---
WALKED TO LAB Addendum: 07/21/19 at 1516 by KRIS JENSEN RN RN UA*
[2019-07-21 16:57] LABS: Urine Bacteria NONE SEEN /hpf (None Seen); Urine Blood Negative /uL (Negative); Urine Hyaline Cast FEW /lpf (0 - 2); Urine Specific Gravity 1.006 (1.001-1.035); Urine WBC 1 /hpf (0 - 5)
[2019-07-21 17:00] VITALS: BP 147/97
[2019-07-21] MEDS: FUROSEMIDE 40 MG/4 ML VIAL IV SCH (17:45)
--- NOTE | 2019-07-21 19:15 | NUR ---
Respiratory note: PT ASSESSED FOR PRN TX. HR 99, RR 18, POX 95% ON RA, BS ARE CLR/DIM. NO SOB OR DISTRESS NOTED AT THIS TIME. NOTIFY PT TO HAVE RT PAGE FOR NEEDED TX.
--- NOTE | 2019-07-21 19:45 | NUR ---
PAIN ASSESSMENT The patient c/o right hip pain which she rates as 10/10. Will treat with PRN morphine.
--- NOTE | 2019-07-21 20:20 | NUR ---
PAIN REASSESSMENT The patient's pain has improved to 6/10. Patient states that her pain is more tolerable after receiving the pain medication.
[2019-07-21] MEDS ORDERED: LORazepam 2MG/ML-1ML VIAL IV PRN (20:45)
[2019-07-21] MEDS: RANOLAZINE ER 500 MG TAB PO SCH (21:18)
--- NOTE | 2019-07-21 21:25 | NUR ---
PAIN ASSESSMENT The patient is requesting more pain medication. Pain is currently 6/10. Will administer [place] for pain control.
[2019-07-21] MEDS: CARVEDILOL 12.5 MG TAB PO SCH (21:26)
--- NOTE | 2019-07-21 21:55 | NUR ---
CRITICAL LAB RECEIVED Received critical lab of elevated trop. Patient's trop is 0.659. Trop is trending downwards. Continuous Still Operator is aware of critical trop. Hospitalist has been paged to report trop value.
[2019-07-21] MEDS: TRICOR 145 MG PO SCH (22:00)
[2019-07-21 22:02] VITALS: BP 152/79
--- NOTE | 2019-07-21 22:20 | NUR ---
HOSPITALIST CALL BACK Hospitalist has been notified about the patient's elevated trop. No new order has been received.
[2019-07-22] MEDS: ONDANSETRON HCL 4 MG/2 ML VIAL IV PRN ×3 (01:03→17:29)
[2019-07-22] MEDS: MORPHINE SULF INJ 2 MG/ML SYRINGE 1ML IV PRN ×4 (01:03→21:22)
[2019-07-22] MEDS: HYDROcodone-ACET 5/325MG TAB PO PRN (04:03)
[2019-07-22 05:26] VITALS: BP 155/95
[2019-07-22] MEDS: hydrALAZINE HCL 25 MG TAB PO SCH ×3 (06:00→22:00)
[2019-07-22] MEDS: FUROSEMIDE 40 MG/4 ML VIAL IV SCH ×2 (06:00→17:28)
--- NOTE | 2019-07-22 06:20 | NUR ---
CRITICAL TROP Received a critical lab call from laboratory. Trop is 0.502. Imaging Scheduler is aware that the patient's trops are trending downward.
[2019-07-22] MEDS: InsuLIN REG 1unit/0.01ml Soln (100units/ml) SC SCH ×4 (06:36→22:00)
[2019-07-22] MEDS: ACCU-CHEK COMFORT CURVE STRIP VI SCH ×4 (06:37→22:00)
--- NOTE | 2019-07-22 08:00 | NUR ---
RECEIVED PATIENT ALERT AND ORIENTED X4, NOT IN DISTRESS, CLEAR LS IN BILATERAL UPPER AND LOWER LUNG LOBES, RR=18 SAT=95% IN RA, DEEP BREATHING AND COUGHING WAS ENCOURAGED, DEMONSTRATED AND VERBALIZED UNDERSTANDING, DENIED CP AND SOB, SR R=66 N TELE MONITOR, ABDOMEN SOFT WITH ACTIVE BS, TOLERATED 100% OF PROVIDED BREAKFAST TRAY, LAST BM=07/20/19 REPORTED, LT. UPPER AND LOWER EXTREMITY MILD WEAKNESS NOTED, SKIN INTACT WARM TO TOUCH, REDIAL AND PEDAL PULSES PALPABLE, CAP REFILL <3 SECONDS, RESTING ON BED AND WATCHING TV AT THIS MOMENT, HEAD OF BED ELEVATED, BED ON LOW POSITION, RAILS UP X2, CALL LIGHT ON REACH, PENDING NEURO CONSULT, MRI OF BRAIN AND CAROTID DOPPLER, WILL CONTINUE MONITORING.
[2019-07-22 08:42] VITALS: BP 126/69
[2019-07-22 09:01] LABS: Basophils # (auto) 0 10 ^3/uL (0-0.2); Basophils % (auto) 0.4 % (0.0-2.0); Eosinophils # (auto) 0 10 ^3/uL (0-0.8); Eosinophils % (auto) 0.2 % (0.0-7.0); Hematocrit 33.5 % (36.0-46.0); Hemoglobin 10.9 g/dL (12.2-16.2); Lymphocytes # (auto) 0.7 10 ^3/uL (0.4-5.4); Lymphocytes % (auto) 9.9 % (10.0-50.0); Mean Corpuscular Hgb Conc. 32.6 g/dL (32.0-36.0); Mean Corpuscular Volume 89.1 fL (80.0-100.0); Monocytes # (auto) 0.3 10 ^3/uL (0-1.3); Monocytes % (auto) 4.7 % (0.0-12.0); Neutrophils # (auto) 5.8 10 ^3/uL (1.6-8.6); Neutrophils % (auto) 84.8 % (37.0-80.0); Nucleated Red Blood Cells % 0.1 %; Platelet Count (auto) 156 10^3/uL (140-450); Red Blood Cells 3.76 10^6/uL (4.0-5.20); Red Cell Distribution Width 14.7 % (11.8-14.3); White Blood Cell 6.8 10^3/uL (4.4-10.8)
[2019-07-22 09:21] LABS: Albumin 3.2 g/dL (3.4-5.0); Calcium 8.5 mg/dL (8.5-10.1); Potassium 3.7 mmol/L (3.5-5.1)
[2019-07-22 09:24] LABS: BUN/Creatinine Ratio 17.7; Bilirubin, Total 0.3 mg/dL (0.2-1.0); Total Protein 7.2 g/dL (6.4-8.2)
[2019-07-22 09:44] LABS: Cholesterol 103 mg/dL (< 200); HDL Cholesterol 47 mg/dL (40-59); LDL Cholesterol 43 mg/dL (< 100); Triglycerides 92 mg/dL (< 150)
--- NOTE | 2019-07-22 09:50 | NUR ---
NOT IN DISTRESS, WENT ON WC TO MRI AND CAME BACK, TOLERATED WELL, WILL CONTINUE FOLLOW UP.
[2019-07-22] MEDS: ASPirin 81 mg TAB PO SCH (10:30)
[2019-07-22] MEDS: TICAGRELOR 90 MG TAB PO SCH ×2 (10:30→22:00)
[2019-07-22] MEDS: CARVEDILOL 12.5 MG TAB PO SCH ×2 (10:31→22:00)
[2019-07-22] MEDS: ISOSORBIDE MONONITRATE ER 60 MG TAB PO SCH (10:32)
[2019-07-22] MEDS: RANOLAZINE ER 500 MG TAB PO SCH ×2 (10:32→22:00)
[2019-07-22] MEDS ORDERED: TAM04C PO (11:37)
[2019-07-22 13:00] VITALS: BP 127/62
--- NOTE | 2019-07-22 14:34 | NUR ---
NOT IN DISTRESS, RESTING AND SLEEPING ON BED, TOLERATING BSC WITH OUT ASSISTANCE WELL, WILL CONTINUE MONITORING.
[2019-07-22 16:36] VITALS: BP 131/72
--- NOTE | 2019-07-22 18:58 | NUR ---
Respiratory note: PT SEEN AND ASSESSED FOR PRN MED TX AT THIS TIME. TX IS NOT INDICATED. PT DENIES HAVING ANY RESPIRATORY DISTRESS. HR 72 RR 18 SP02 93% ON ROOM AIR.
--- NOTE | 2019-07-22 19:23 | NUR ---
NOT IN DISTRESS, DENIED PAIN, SITTING ON BED EATING DINNER, REPORT WAS GIVEN TO THE VET TECH RN.
--- NOTE | 2019-07-22 19:25 | NUR ---
Opening Shift Note Assumed care of patient. Patient is resting comfortably in bed and is easily arousable. No S/S of distress/SOB or pain. Instructed on POC and to call for assist PRN, will continue to monitor for changes Q1hr and PRN.
[2019-07-22] MEDS: TRICOR 145 MG PO SCH (22:00)
[2019-07-22 22:04] VITALS: BP 103/48
[2019-07-23] MEDS: MORPHINE SULF INJ 2 MG/ML SYRINGE 1ML IV PRN (02:00)
[2019-07-23 05:00] VITALS: BP 112/59
[2019-07-23] MEDS: hydrALAZINE HCL 25 MG TAB PO SCH ×3 (06:00→22:14)
[2019-07-23] MEDS: InsuLIN REG 1unit/0.01ml Soln (100units/ml) SC SCH ×4 (06:38→22:00)
[2019-07-23] MEDS: ACCU-CHEK COMFORT CURVE STRIP VI SCH ×4 (06:38→22:16)
--- NOTE | 2019-07-23 08:00 | NUR ---
RECEIVED PATIENT ALERT AND ORIENTED X4, NOT IN DISTRESS, CLEAR LS IN BILATERAL UPPER AND LOWER LUNG LOBES,DEEP BREATHING AND COUGHING ENCOURAGED, DEMONSTRATED AND VERBALIZED UNDERSTANDING, RR=18 SAT=96%, SR ON TELE MONITOR R=72, ABDOMEN SOFT AND ROUND WITH HYPOACTIVE BS, LAST BM=03/23/19 REPORTED, SKIN INTACT WARM TO TOUCH, RADIAL AND PEDAL PULSES PALPABLE, CAP REFILL <3 SECONDS, MILD WEAKNESS ON RT. UPPER AND LOWER EXTREMITIES NOTED, SITTING ON BED EATING BREAKFAST, TOLERATING WELL, PAIN L=2/10 REPORTED, HEAD OF BED ELEVATED, BED ON LOW POSITION, RAILS UP X2, CALL LIGHT ON REACH, WILL CONTINUE MONITORING.
[2019-07-23 08:27] LABS: Calcium 8.7 mg/dL (8.5-10.1); Potassium 3.5 mmol/L (3.5-5.1)
[2019-07-23 08:30] LABS: BUN/Creatinine Ratio 16.6
[2019-07-23 08:46] VITALS: BP 151/77
--- NOTE | 2019-07-23 09:30 | NUR ---
OUT OFF BED ENCOURAGED, REFUSED TO COOPERATED FOR OUT OF BED ASSISTANCE, JERMAIN LAU WAS NOTIFIED, RESTING AND SLEEPING AT THIS MOMENT.
[2019-07-23] MEDS: TICAGRELOR 90 MG TAB PO SCH ×2 (09:36→22:14)
[2019-07-23] MEDS: CARVEDILOL 12.5 MG TAB PO SCH ×2 (09:36→22:15)
[2019-07-23] MEDS: FUROSEMIDE 20 MG/2 ML VIAL IV SCH (09:36)
[2019-07-23] MEDS: ASPirin 81 mg TAB PO SCH (09:36)
[2019-07-23] MEDS: ISOSORBIDE MONONITRATE ER 60 MG TAB PO SCH (09:37)
[2019-07-23] MEDS: HYDROcodone-ACET 5/325MG TAB PO PRN ×2 (09:38→23:05)
[2019-07-23] MEDS: RANOLAZINE ER 500 MG TAB PO SCH ×2 (09:39→22:14)
--- NOTE | 2019-07-23 09:40 | NUR ---
Respiratory note: Assessed pt for prn medneb tx. HR 83, RR 18, SPO2 97% on room air. Breath sounds clear t/o, pt denies SOB, no s/s of respiratory distress noted. Medneb tx not indicated at this time. Pt complaining of chest pain, RN at bedside and aware.
--- NOTE | 2019-07-23 12:30 | NUR ---
AT 0938 C/O GENERALIZED PAIN L=6/10, NORCO PO PRN WAS PROVIDED, AT 1030 PAIN L=4/10, REFUSED ASSISTANCE OUT OF BED TO THE CHAIR, SITTING ON BED EATING LUNCH AT THIS MOMENT, WILL CONTINUE MONITORING.
[2019-07-23 12:44] VITALS: BP 129/68
[2019-07-23 15:02] VITALS: BP 129/68
[2019-07-23 16:37] VITALS: BP 116/72
--- NOTE | 2019-07-23 19:08 | NUR ---
NOT IN DISTRESS, DENIED PAIN, RESTING ON BED, REPORT WAS GIVEN TO THE PRIMER POWDER BLENDER WET RN.
--- NOTE | 2019-07-23 19:10 | NUR ---
Respiratory note: ASSESSED PT FOR PRN TX PT WAS AWAKE AND ALERT, NO RESP DISTRESS NOTED. HR 72, RR 16, SPO2 95% ON ROOM AIR. BS ARE CLEAR, NO INDICATION FOR TX AT THIS TIME. PT KNOWS TO HAVE RT PAGED IF TX IS NEEDED.
--- NOTE | 2019-07-23 19:37 | NUR ---
Opening Shift Note Assumed care of patient, awake and alert. No S/S of distress/SOB or pain. Safety measures in place bed in lowest position, side rails up x2, and call light within reach. Instructed on POC and to call for assist PRN, will continue to monitor for changes Q1hr and PRN. Addendum: 07/24/19 at 0204 by MARIA ALEJANDRA RODRIGUEZ RN RN Patient wearing Life Vest.
--- NOTE | 2019-07-23 20:00 | NUR ---
Patient's Life Vest battery needed to be changed, battery . Patient unaware how to change the battery. Educating patient how to change and charge the battery. Patient states her son changes the battery. Placed social service consult for further patient education.
[2019-07-23 21:57] VITALS: BP 123/69
[2019-07-23] MEDS: TRICOR 145 MG PO SCH (22:00)
[2019-07-24 05:00] VITALS: BP 130/70
[2019-07-24] MEDS: hydrALAZINE HCL 25 MG TAB PO SCH ×2 (05:46→15:02)
[2019-07-24] MEDS: ACCU-CHEK COMFORT CURVE STRIP VI SCH ×3 (06:05→17:00)
[2019-07-24] MEDS: InsuLIN REG 1unit/0.01ml Soln (100units/ml) SC SCH ×3 (06:09→17:00)
[2019-07-24 09:00] VITALS: BP 135/70
[2019-07-24] MEDS ORDERED: LORazepam 2MG/ML-1ML VIAL IV PRN (09:00)
[2019-07-24] MEDS: FUROSEMIDE 20 MG/2 ML VIAL IV SCH (09:49)
[2019-07-24] MEDS: ASPirin 81 mg TAB PO SCH (09:50)
[2019-07-24] MEDS: RANOLAZINE ER 500 MG TAB PO SCH (09:50)
[2019-07-24] MEDS: TICAGRELOR 90 MG TAB PO SCH (09:50)
[2019-07-24] MEDS: CARVEDILOL 12.5 MG TAB PO SCH (09:51)
[2019-07-24] MEDS: ISOSORBIDE MONONITRATE ER 60 MG TAB PO SCH (09:53)
--- NOTE | 2019-07-24 09:58 | NUR ---
SPOKE WITH PATIENT ABOUT [employer]OLL,LIFE VEST. PT REPORTS ZOLL ALREADY SHOWED HER TWICE HOW TO USE LIFE VEST, ONCE IN THE HOSPITAL AND ONCE AT HOME. ASKED PT IF SHE WANTS ZOLL TO COME AGAIN BEFORE SHE GOES HOME FOR ANY QUESTIONS. PT REPORTS SHE KNOWS HOW TO USE AND CHARGE LIFE VEST, AND HER SON KNOWS HOW TO USE IT. SHE REPORTS SHE ASKS FOR HER SONS HELP AT HOME BECAUSE SHE CAN'T SEE VERY WELL. SHE REPORTS NO, SHE DOESN'T NEED ZOLL TO COME. WILL CONTINUE TO MONITOR.
--- NOTE | 2019-07-24 10:47 | NUR ---
PT ZOLL VEST ALARMING, VEST MONITOR REPORTS PT VEST NOT APPLIED RIGHT. READJUSTED PT VEST, VEST STILL ALARMING. CALLED DANIEL AND REQUESTED ZOLL TO COME ASSESS LIFE VEST. DR HALL AND DR VILLALOBOS SAW PATIENT, BOTH AWARE LIFE VEST IS ALARMING. DR VILLALOBOS ASSESSED LIFE VEST LEADS AND WIRES. UNABLE TO FIX. REQUESTS ZOLL ORIENTAL MEDICINE PRACTITIONER TO COME LOOK AT [facility], NOTIFIED MD SANCHEZ ALREADY CALLED. WILL CONTINUE TO MONITOR.
--- NOTE | 2019-07-24 11:28 | NUR ---
BERNARDO FROM [facility] CALLED BACK, HE REPORTS TO CALL CUSTOMER SERVICE NUMBER AND TROUBLESHOOT OVER THE PHONE.
--- NOTE | 2019-07-24 11:48 | NUR ---
CALLED DANIEL AND YOLANDA SHOT LIFE VEST. LIFE VEST RESET BY REMOVING BATTERY AND WITH TECH HELP. TECH REPORTS HE SUBMITTED A WORK ORDER AND A ZOLL REP WILL BE OUT TO CHECK VEST. Addendum: 07/24/19 at 1310 by TIFFANIE LAMAR RN TECH REPORTS HER LIFE VEST IS SENDING DATA TO HIM.
--- NOTE | 2019-07-24 12:14 | NUR ---
Est energy needs [id number] kcal (25-30 kcal/kg BW 62.6kg) Est protein needs 39-50g (0.6-0.8g/kg BW 62.6kg r/t CKD 3 no HD) will reassess prn. Addendum: 07/24/19 at [address] Amended: Links added.
[2019-07-24 12:50] VITALS: BP 135/70
[2019-07-24 13:00] VITALS: BP_SYST 132; BP_SYST 135; BP_DIAS 62; BP_DIAS 69
--- NOTE | 2019-07-24 13:11 | NUR ---
JEANIE ROBERTS SPOKE WITH PATIENT THIS MORNING ON THE PHONE AND ASSESSED HER AT HOME NEEDS.
--- NOTE | 2019-07-24 15:07 | NUR ---
ZOLL LIFE VEST REP HERE. MRA OF THE BRAIN WAS DONE, RESULTS CAME UP, CALLED DR HALL AND NOTIFIED MD OF RESULTS. NOTIFIED MD PT PT CAN AMBULATE TO [facility] BUT HAS NOT WALKED YET. AWARE. DR HALL REPORTS TO CALL DR OVIEDO AND GET NEURO CLEARANCE. CALLED DR OVIEDO, NOTIFIED HIM OF MRA RESULTS, MD AWARE, AND PT IS CLEAR FROM NEURO STANDPOINT.
--- NOTE | 2019-07-24 15:25 | NUR ---
assessment Patient is a 54 year old female who is alert and oriented. Patients cognitive abilities are intact. Prior to admission patient lived home with family and functioned independently. Patient informed me she is able to care for her own ADLs. Per patient she will return home to her prior living arrangements post discharge and family will transport her home. Patient has a fww and a cane for home use. Patient informed me her PCP is Dr Hartman. Patient had a stroke on last admission. Patient has no new deficits. Patient feels safe returning home on discharge. Patient may benefit form home health PT and safety on discharge. I informed patient she has a right to speak to a high school social studies teacher regarding all care. I informed patient she has a right to participate in any and all discharge planning. Patient does not have a POA and advanced directive. I have offered patient information on POA and advanced directives. I informed the patient the advantages and benefits of having an Advanced Directive. Patient verbalized understanding and agreed to discharge plan. Addendum: 07/24/19 at 1532 by Hattie ROBERTS Amended: Links added.
--- NOTE | 2019-07-24 15:40 | NUR ---
WENT TO SPEAK WITH ZOLL REP. ZOLL REP GONE. PT REPORTS ZOLL REP REPORTS LIFE VEST IS WORKING AGAIN.
[2019-07-24] MEDS ORDERED: ISO60SRT PO (16:02)
[2019-07-24] MEDS ORDERED: HYDR-2691 PO (16:02)
[2019-07-24] MEDS ORDERED: RANO500T PO (16:02)
[2019-07-24 16:29] VITALS: BP 135/69
--- NOTE | 2019-07-24 17:30 | NUR ---
Discharge instructions given as ordered. Encourage to follow up with Jack MUÑOZ Zhang and [facility] as instructed. All questions and concerns addressed. Patient verbalized understanding. Medication reconciliation form completed and copy given to patient. IV removed with catheter intact, pressure dressing applied. Telemetry unit returned to ICU. Patient taken to vehicle via wheelchair with all personal belongings, accompanied by staff. No distress noted at time of departure.
--- NOTE | 2019-07-24 17:40 | NUR ---
Pt ambulated to wheel chair from bed stand bye assist. Pt ambulated from wheel chair to car with stand bye assist.
[2019-07-24] MEDS ORDERED: ATORVASTATIN 20 MG TAB PO SCH (22:00)
== END 2019-07-24 17:20 | disposition home or self-care (01) | DRG 194 ==
LOC: ER 06:41 → EDBD 06:41 → TELE 06:42 → TELE-WESTW 11:02
PROVIDERS: ADMIT Nurse Practitioner Acute Care; ATTEND Internal Medicine Nephrology
DX: I13.0 Hypertensive heart and chronic kidney disease with heart failure and stage 1 through stage 4 chronic kidney disease, or unspecified chronic kidney disease (principal); I21.A1 Myocardial infarction type 2; I63.531 Cerebral infarction due to unspecified occlusion or stenosis of right posterior cerebral artery; I50.43 Acute on chronic combined systolic (congestive) and diastolic (congestive) heart failure; N17.0 Acute kidney failure with tubular necrosis; E11.65 Type 2 diabetes mellitus with hyperglycemia; E11.22 Type 2 diabetes mellitus with diabetic chronic kidney disease; D63.8 Anemia in other chronic diseases classified elsewhere; N18.3 Chronic kidney disease, stage 3 (moderate); H53.462 Homonymous bilateral field defects, left side; I16.0 Hypertensive urgency; I25.10 Atherosclerotic heart disease of native coronary artery without angina pectoris; F32.9 Major depressive disorder, single episode, unspecified; G81.94 Hemiplegia, unspecified affecting left nondominant side; E78.5 Hyperlipidemia, unspecified; F17.200 Nicotine dependence, unspecified, uncomplicated; I08.1 Rheumatic disorders of both mitral and tricuspid valves; I70.0 Atherosclerosis of aorta; E78.00 Pure hypercholesterolemia, unspecified; J44.9 Chronic obstructive pulmonary disease, unspecified; Z79.02 Long term (current) use of antithrombotics/antiplatelets; I25.2 Old myocardial infarction; Z79.4 Long term (current) use of insulin; Z79.82 Long term (current) use of aspirin; Z82.0 Family history of epilepsy and other diseases of the nervous system; Z82.49 Family history of ischemic heart disease and other diseases of the circulatory system; Z82.5 Family history of asthma and other chronic lower respiratory diseases; Z83.3 Family history of diabetes mellitus; Z90.710 Acquired absence of both cervix and uterus; Z95.5 Presence of coronary angioplasty implant and graft; Z79.899 Other long term (current) drug therapy
CPT/HCPCS: 36415; 70450; 70545; 70551; 71045; 73030; 80048; 80053; 80061; 81001; 82962; 83036; 84484; 85025; 85610; 85730; 87081; 93005; 93886; 96372; 99291; G0378; J1815; J2405

== ENCOUNTER 2019-11-17 14:48 | Emergency (ER) | payer MEDICAID ==
[~2019-11-17] VITALS: Ht 154.9 cm; Wt 54.9 kg
[~2019-11-17 14:48] MED LIST changes: -CLO01T PO; +HYDR-2691 PO; +ISO60SRT PO; +RANO500T PO; -TRAM50TA2 PO; -[UNRECOGNIZED DRUG - CODE] PO
[2019-11-17 15:41] VITALS: BP 188/85
== END 2019-11-17 20:39 | disposition left against medical advice (07) ==
LOC: ER 14:48
DX: M54.9 Dorsalgia, unspecified (principal); Z53.21 Procedure and treatment not carried out due to patient leaving prior to being seen by health care provider

== ENCOUNTER 2021-12-22 09:22 | Inpatient (IN) | payer MEDICAID ==
[~2021-12-22] VITALS: Ht 160 cm; Wt 58.5 kg
[~2021-12-22 09:22] MED LIST changes: +AMLO-496 PO; -AMLO10TA13 PO; -HYDR-2691 PO; +HYDR25TA87 PO
[2021-12-22 11:05] LABS: Basophils # (auto) 0 10 ^3/uL (0-0.2); Basophils % (auto) 0.3 % (0.0-2.0); Eosinophils # (auto) 0 10 ^3/uL (0-0.8); Eosinophils % (auto) 0.2 % (0.0-7.0); Hematocrit 33.7 % (36.0-46.0); Lymphocytes % (auto) 26.3 % (10.0-50.0); Mean Corpuscular Hemoglobin 29.6 pg (28.0-32.0); Mean Corpuscular Hgb Conc. 32.8 g/dL (32.0-36.0); Mean Corpuscular Volume 90.1 fL (80.0-100.0); Monocytes # (auto) 0.3 10 ^3/uL (0-1.3); Monocytes % (auto) 7.4 % (0.0-12.0); Neutrophils # (auto) 2.6 10 ^3/uL (1.6-8.6); Neutrophils % (auto) 65.8 % (37.0-80.0); Red Blood Cells 3.73 10^6/uL (4.0-5.20); Red Cell Distribution Width 12.9 % (11.8-14.3)
[2021-12-22 11:14] LABS: Albumin 3.6 g/dL (3.4-5.0); BUN/Creatinine Ratio 20.4; Calcium 8.9 mg/dL (8.5-10.1)
[2021-12-22 11:49] LABS: Bilirubin, Total 0.3 mg/dL (0.2-1.0); Total Protein 7.7 g/dL (6.4-8.2)
[2021-12-22] MEDS ORDERED: ENOXAPARIN SOD 60 MG/0.6 ML SYRINGE SC ONE (13:30)
[2021-12-22] MEDS ORDERED: HYDROcodone-ACET 5/325MG TAB PO PRN (22:30)
[2021-12-22] MEDS ORDERED: hydrALAZINE HCL 20 MG/ML VL IV PRN (22:30)
[2021-12-22] MEDS ORDERED: ACETAMINOPHEN 325 MG TAB PO PRN (22:30)
[2021-12-22] MEDS ORDERED: DEXTROSE (50%) 50ML SYRG IV PRN (22:30)
[2021-12-22] MEDS ORDERED: DOCUSATE SOD 100 MG CAP PO PRN (22:30)
[2021-12-22] MEDS ORDERED: ONDANSETRON HCL 4 MG/2 ML VIAL IV PRN (22:30)
[2021-12-22] MEDS ORDERED: MORPHINE SULFATE INJ 2 MG/ml SYRG IV PRN (23:15)
[2021-12-22] MEDS ORDERED: NITROGLYCERIN 0.4 MG SL TAB SL PRN (23:15)
[2021-12-23 01:09] VITALS: BP 180/91
[2021-12-23 05:00] VITALS: BP 131/60
[2021-12-23] MEDS: SODIUM CHLOR 0.9% PF (SALINE LOCK) 10ML VIAL/SYR IV SCH ×3 (06:04→21:47)
[2021-12-23] MEDS: ACCU-CHEK COMFORT CURVE STRIP VI SCH ×4 (06:05→21:42)
[2021-12-23] MEDS: InsuLIN REG 1unit/0.01ml Soln (100units/ml) SC SCH ×4 (06:05→21:42)
[2021-12-23 06:07] LABS: Basophils # (auto) 0 10 ^3/uL (0-0.2); Basophils % (auto) 0.6 % (0.0-2.0); Eosinophils # (auto) 0 10 ^3/uL (0-0.8); Eosinophils % (auto) 0.5 % (0.0-7.0); Hematocrit 30.7 % (36.0-46.0); Hemoglobin 10.2 g/dL (12.2-16.2); Lymphocytes # (auto) 1.3 10 ^3/uL (0.4-5.4); Lymphocytes % (auto) 37.8 % (10.0-50.0); Mean Corpuscular Hemoglobin 29.8 pg (28.0-32.0); Mean Corpuscular Hgb Conc. 33.1 g/dL (32.0-36.0); Mean Corpuscular Volume 90.2 fL (80.0-100.0); Monocytes # (auto) 0.3 10 ^3/uL (0-1.3); Monocytes % (auto) 8.9 % (0.0-12.0); Neutrophils # (auto) 1.8 10 ^3/uL (1.6-8.6); Neutrophils % (auto) 52.2 % (37.0-80.0); Nucleated Red Blood Cells % 0.1 %; Red Cell Distribution Width 13.1 % (11.8-14.3); White Blood Cell 3.4 10^3/uL (4.4-10.8)
[2021-12-23 06:39] LABS: Albumin 3.2 g/dL (3.4-5.0); Calcium 8.2 mg/dL (8.5-10.1); Potassium 3.1 mmol/L (3.5-5.1)
[2021-12-23 06:43] LABS: BUN/Creatinine Ratio 22.6; Bilirubin, Total 0.6 mg/dL (0.2-1.0); Total Protein 6.8 g/dL (6.4-8.2)
[2021-12-23 08:20] VITALS: BP 123/72
[2021-12-23] MEDS ORDERED: HEPARIN SODIUM (PORCINE) 5000 UNITS/ML 1ML VIAL SC SCH (10:00)
[2021-12-23] MEDS ORDERED: FAMOTIDINE (10MG/ML) 2ML VL IV SCH (10:00)
[2021-12-23] MEDS ORDERED: FUROSEMIDE 20 MG/2 ML VIAL IV SCH (10:00)
[2021-12-23] MEDS: CARVEDILOL 12.5 MG TAB PO SCH ×2 (10:36→21:47)
[2021-12-23] MEDS: ASPirin 81 mg TAB PO SCH (10:37)
[2021-12-23 12:15] VITALS: BP 155/89
[2021-12-23] MEDS ORDERED: LOPERAMIDE 1 mg/7.5ml ORAL soln PO ONE (13:00)
[2021-12-23] MEDS ORDERED: POTASSIUM CHL 20 Meq TABLET PO ONE (15:00)
[2021-12-23 16:15] VITALS: BP 158/82
[2021-12-23 22:00] VITALS: BP 155/86
[2021-12-24 05:00] VITALS: BP 145/66
[2021-12-24] MEDS: InsuLIN REG 1unit/0.01ml Soln (100units/ml) SC SCH ×4 (05:35→22:00)
[2021-12-24] MEDS: ACCU-CHEK COMFORT CURVE STRIP VI SCH ×4 (05:35→22:00)
[2021-12-24] MEDS: SODIUM CHLOR 0.9% PF (SALINE LOCK) 10ML VIAL/SYR IV SCH ×3 (05:35→21:48)
[2021-12-24 08:30] VITALS: BP 136/85
[2021-12-24] MEDS ORDERED: FLUT0.05 NAS (09:07)
[2021-12-24] MEDS ORDERED: [UNRECOGNIZED DRUG - CODE] PO (09:11)
[2021-12-24] MEDS: ASPirin 81 mg TAB PO SCH (09:45)
[2021-12-24] MEDS: CARVEDILOL 12.5 MG TAB PO SCH ×2 (09:46→20:33)
[2021-12-24 13:30] VITALS: BP 116/59
[2021-12-24] MEDS: LOPERAMIDE HCL 2 MG CAP/TAB PO PRN ×3 (16:28→19:51)
[2021-12-24 16:30] VITALS: BP 121/56
[2021-12-24 17:25] VITALS: BP 121/56
== END 2021-12-24 22:37 | disposition home health service (06) | DRG 113 ==
LOC: ER 09:22 → TELE 23:17 → TELE-WESTW 23:56
PROVIDERS: ADMIT Nurse Practitioner Family; ATTEND Student in an Organized Health Care Education/Training Program
DX: J06.9 Acute upper respiratory infection, unspecified (principal); N17.9 Acute kidney failure, unspecified; E11.22 Type 2 diabetes mellitus with diabetic chronic kidney disease; I50.9 Heart failure, unspecified; J44.1 Chronic obstructive pulmonary disease with (acute) exacerbation; I13.0 Hypertensive heart and chronic kidney disease with heart failure and stage 1 through stage 4 chronic kidney disease, or unspecified chronic kidney disease; D72.819 Decreased white blood cell count, unspecified; E78.5 Hyperlipidemia, unspecified; R77.8 Other specified abnormalities of plasma proteins; R79.89 Other specified abnormal findings of blood chemistry; Z20.822 Contact with and (suspected) exposure to COVID-19; M16.12 Unilateral primary osteoarthritis, left hip; N18.32 Chronic kidney disease, stage 3b; Z82.0 Family history of epilepsy and other diseases of the nervous system; Z82.49 Family history of ischemic heart disease and other diseases of the circulatory system; Z82.5 Family history of asthma and other chronic lower respiratory diseases; Z83.3 Family history of diabetes mellitus; Z90.710 Acquired absence of both cervix and uterus; Z88.0 Allergy status to penicillin; Z88.2 Allergy status to sulfonamides
CPT/HCPCS: 36415; 71045; 80053; 82962; 83880; 84484; 85025; 85379; 87426; 96372; 96374; G0378; J1815; J3490

== ENCOUNTER 2022-05-18 17:05 | Inpatient (IN) | payer MEDICAID ==
[~2022-05-18] VITALS: Ht 154.9 cm; Wt 40.4 kg
[~2022-05-18 17:05] MED LIST changes: -ALBUAER3 IN; +FLUT0.05 NAS; -INSUINJ47 SC; -INSUINJ48 SC; +[UNRECOGNIZED DRUG - CODE] PO
[2022-05-18 18:08] LABS: Basophils # (auto) 0 10 ^3/uL (0-0.2); Basophils % (auto) 0.3 % (0.0-2.0); Eosinophils # (auto) 0 10 ^3/uL (0-0.8); Eosinophils % (auto) 0.2 % (0.0-7.0); Hematocrit 31.7 % (36.0-46.0); Hemoglobin 10.6 g/dL (12.2-16.2); Lymphocytes # (auto) 0.9 10 ^3/uL (0.4-5.4); Mean Corpuscular Hemoglobin 30.3 pg (28.0-32.0); Mean Corpuscular Hgb Conc. 33.4 g/dL (32.0-36.0); Mean Corpuscular Volume 90.6 fL (80.0-100.0); Monocytes # (auto) 0.4 10 ^3/uL (0-1.3); Monocytes % (auto) 6.7 % (0.0-12.0); Neutrophils # (auto) 4.2 10 ^3/uL (1.6-8.6); Neutrophils % (auto) 75.8 % (37.0-80.0); Red Cell Distribution Width 12.6 % (11.8-14.3); White Blood Cell 5.6 10^3/uL (4.4-10.8)
[2022-05-18 18:17] LABS: Albumin 3.7 g/dL (3.4-5.0); Calcium 8.4 mg/dL (8.5-10.1)
[2022-05-18 18:20] LABS: BUN/Creatinine Ratio 17.1 (10.0-20.0); Bilirubin, Total 0.4 mg/dL (0.2-1.0); Total Protein 7.8 g/dL (6.4-8.2)
[2022-05-18 18:32] LABS: Urine Bacteria NONE SEEN /hpf (None Seen); Urine Blood 1+ /uL (Negative); Urine Specific Gravity 1.018 (1.001-1.035); Urine WBC 5 /hpf (0 - 5)
[2022-05-18 18:34] LABS: Potassium 2.8 mmol/L (3.5-5.1)
[2022-05-18] MEDS ORDERED: levoFLOXacin 500MG 100 ML IV ONE (20:45)
[2022-05-18] MEDS ORDERED: PANTOPRAZOLE 40 MG/10 ML VIAL INJ IV ONE (20:45)
[2022-05-19] MEDS ORDERED: hydrALAZINE HCL 20 MG/ML VL IV ONE (01:00)
[2022-05-19] MEDS ORDERED: POTASSIUM CHL 20MEQ/100ML 100 ML IV ONE (01:30)
[2022-05-19] MEDS ORDERED: hydrALAZINE HCL 20 MG/ML VL IV PRN (01:30)
[2022-05-19] MEDS ORDERED: DOCUSATE SOD 100 MG CAP PO PRN (01:30)
[2022-05-19] MEDS ORDERED: ACETAMINOPHEN 325 MG TAB PO PRN (01:30)
[2022-05-19] MEDS ORDERED: MORPHINE SULFATE INJ 2 MG/ml SYRG IV PRN ×2 (01:30)
[2022-05-19] MEDS ORDERED: NITROGLYCERIN 0.4 MG SL TAB SL PRN (01:30)
[2022-05-19] MEDS ORDERED: DEXTROSE (50%) 50ML SYRG IV PRN (01:30)
[2022-05-19] MEDS ORDERED: HYDROcodone-ACET 5/325MG TAB PO PRN (01:30)
[2022-05-19] MEDS: ONDANSETRON HCL 4 MG/2 ML VIAL IV PRN ×2 (03:34→15:51)
[2022-05-19] MEDS: SODIUM CHLOR 0.9% PF (SALINE LOCK) 10ML VIAL/SYR IV SCH ×3 (05:39→22:05)
[2022-05-19 06:20] LABS: Basophils # (auto) 0 10 ^3/uL (0-0.2); Basophils % (auto) 0.5 % (0.0-2.0); Eosinophils # (auto) 0 10 ^3/uL (0-0.8); Hematocrit 30.7 % (36.0-46.0); Hemoglobin 10.5 g/dL (12.2-16.2); Lymphocytes # (auto) 1.4 10 ^3/uL (0.4-5.4); Mean Corpuscular Hemoglobin 30.6 pg (28.0-32.0); Mean Corpuscular Hgb Conc. 34.1 g/dL (32.0-36.0); Mean Corpuscular Volume 89.7 fL (80.0-100.0); Monocytes # (auto) 0.4 10 ^3/uL (0-1.3); Monocytes % (auto) 9.1 % (0.0-12.0); Neutrophils # (auto) 2.5 10 ^3/uL (1.6-8.6); Neutrophils % (auto) 56.4 % (37.0-80.0); Red Blood Cells 3.42 10^6/uL (4.0-5.20); Red Cell Distribution Width 12.3 % (11.8-14.3); White Blood Cell 4.4 10^3/uL (4.4-10.8)
[2022-05-19] MEDS: ACCU-CHEK COMFORT CURVE STRIP VI SCH ×4 (06:24→22:03)
[2022-05-19] MEDS: InsuLIN REG 1unit/0.01ml Soln (100units/ml) SC SCH ×3 (06:30→17:00)
[2022-05-19 07:03] LABS: Albumin 3.5 g/dL (3.4-5.0); BUN/Creatinine Ratio 20.4 (10.0-20.0); Bilirubin, Total 0.3 mg/dL (0.2-1.0); Calcium 8.3 mg/dL (8.5-10.1); Total Protein 6.9 g/dL (6.4-8.2)
[2022-05-19] MEDS: FAMOTIDINE (10MG/ML) 2ML VL IV SCH ×2 (10:33→22:12)
[2022-05-19] MEDS: ASPirin 81 mg TAB PO SCH (10:34)
[2022-05-19] MEDS: amLODIPine BESYLATE 5 MG TAB PO SCH (10:35)
[2022-05-19] MEDS: CARVEDILOL 12.5 MG TAB PO SCH ×3 (10:36→22:05)
[2022-05-19 13:56] LABS: Magnesium 1.8 mg/dL (1.6-2.6); Phosphorus 3.5 mg/dL (2.5-4.90)
[2022-05-19] MEDS ORDERED: InsuLIN REG 1unit/0.01ml Soln (100units/ml) SC SCH (22:00)
[2022-05-19] MEDS ORDERED: ATORVASTATIN 20 MG TAB PO SCH (22:00)
[2022-05-20] VITALS (9 sets, daily range): BP systolic 113–151; BP diastolic 45–74
[2022-05-20 02:35] LABS: Urine Bacteria FEW /hpf (None Seen); Urine Blood Negative /uL (Negative); Urine Hyaline Cast FEW /lpf (0 - 2); Urine Mucus FEW (None Seen); Urine Specific Gravity 1.016 (1.001-1.035); Urine WBC 3 /hpf (0 - 5)
[2022-05-20 02:38] LABS: Protein, Urine 169.4 mg/dL (0.0-11.9)
[2022-05-20 02:39] LABS: Creatinine, Urine 126 mg/dL (30.0-125.0); Sodium Urine 33 mmol/L (40-220)
[2022-05-20] MEDS: SODIUM CHLOR 0.9% PF (SALINE LOCK) 10ML VIAL/SYR IV SCH ×2 (06:00→14:06)
[2022-05-20] MEDS: ACCU-CHEK COMFORT CURVE STRIP VI SCH ×2 (06:32→12:09)
[2022-05-20] MEDS: InsuLIN REG 1unit/0.01ml Soln (100units/ml) SC SCH ×2 (06:32→12:11)
[2022-05-20 07:09] LABS: Basophils # (auto) 0 10 ^3/uL (0-0.2); Basophils % (auto) 0.5 % (0.0-2.0); Eosinophils # (auto) 0 10 ^3/uL (0-0.8); Eosinophils % (auto) 0.7 % (0.0-7.0); Hematocrit 26.8 % (36.0-46.0); Hemoglobin 9.4 g/dL (12.2-16.2); Lymphocytes # (auto) 1.2 10 ^3/uL (0.4-5.4); Lymphocytes % (auto) 30.6 % (10.0-50.0); Mean Corpuscular Hemoglobin 30.9 pg (28.0-32.0); Mean Corpuscular Hgb Conc. 35.2 g/dL (32.0-36.0); Mean Corpuscular Volume 87.8 fL (80.0-100.0); Monocytes # (auto) 0.3 10 ^3/uL (0-1.3); Monocytes % (auto) 7.6 % (0.0-12.0); Neutrophils # (auto) 2.5 10 ^3/uL (1.6-8.6); Neutrophils % (auto) 60.6 % (37.0-80.0); Nucleated Red Blood Cells % 0.1 %; Red Blood Cells 3.05 10^6/uL (4.0-5.20); Red Cell Distribution Width 12.5 % (11.8-14.3); White Blood Cell 4.1 10^3/uL (4.4-10.8)
[2022-05-20 07:34] LABS: BUN/Creatinine Ratio 16.8 (10.0-20.0); Bilirubin, Total 0.4 mg/dL (0.2-1.0); Total Protein 6.4 g/dL (6.4-8.2)
[2022-05-20 08:06] LABS: Potassium 2.9 mmol/L (3.5-5.1)
[2022-05-20] MEDS ORDERED: POTASSIUM EFFERVESENT TAB 25 MEQ PO ONE (08:45)
[2022-05-20] MEDS ORDERED: AMLO-496 PO (08:56)
[2022-05-20] MEDS ORDERED: NITR-87 PO (08:56)
[2022-05-20] MEDS ORDERED: CAR125T OR (08:56)
[2022-05-20] MEDS: amLODIPine BESYLATE 5 MG TAB PO SCH (09:39)
[2022-05-20] MEDS: ASPirin 81 mg TAB PO SCH (09:39)
[2022-05-20] MEDS: CARVEDILOL 12.5 MG TAB PO SCH (09:40)
[2022-05-20] MEDS: FAMOTIDINE (10MG/ML) 2ML VL IV SCH (09:40)
[2022-05-20] MEDS ORDERED: ERGOCALCIFEROL 50,000 UNIT(1.25MG) CAP PO SCH (12:30)
[2022-05-20] MEDS ORDERED: POTASSIUM CHL 20MEQ/100ML 100 ML IV SCH (12:30)
[2022-05-20] MEDS ORDERED: POTASSIUM CHL 20 Meq TABLET PO ONE (13:45)
[2022-05-20] MEDS ORDERED: DOPamine 1600MCG/ML D5W 250 ML IV SCH (14:45)
[2022-05-21] MEDS ORDERED: levoFLOXacin 500MG 100 ML IV SCH (02:00)
== END 2022-05-20 16:00 | disposition home or self-care (01) | DRG 241 ==
LOC: ER 17:05 → TELE 05-19 01:52 → TELE-WESTW 05-20 01:11
PROVIDERS: ADMIT Nurse Practitioner Family; ATTEND Nurse Practitioner Acute Care
DX: K29.00 Acute gastritis without bleeding (principal); N17.0 Acute kidney failure with tubular necrosis; R64 Cachexia; I50.9 Heart failure, unspecified; I13.0 Hypertensive heart and chronic kidney disease with heart failure and stage 1 through stage 4 chronic kidney disease, or unspecified chronic kidney disease; D63.1 Anemia in chronic kidney disease; D69.6 Thrombocytopenia, unspecified; N30.00 Acute cystitis without hematuria; E55.9 Vitamin D deficiency, unspecified; E11.22 Type 2 diabetes mellitus with diabetic chronic kidney disease; I11.0 Hypertensive heart disease with heart failure; E11.65 Type 2 diabetes mellitus with hyperglycemia; I16.0 Hypertensive urgency; J44.9 Chronic obstructive pulmonary disease, unspecified; E87.6 Hypokalemia; N18.32 Chronic kidney disease, stage 3b; Z68.1 Body mass index [BMI] 19.9 or less, adult; Z59.00 Homelessness unspecified; Z88.0 Allergy status to penicillin; Z82.0 Family history of epilepsy and other diseases of the nervous system; Z82.49 Family history of ischemic heart disease and other diseases of the circulatory system; Z82.5 Family history of asthma and other chronic lower respiratory diseases; Z83.3 Family history of diabetes mellitus; Z90.710 Acquired absence of both cervix and uterus; Z98.891 History of uterine scar from previous surgery; Z88.2 Allergy status to sulfonamides
CPT/HCPCS: 36415; 74176; 76775; 80053; 81001; 82306; 82570; 82962; 83036; 83690; 83735; 83970; 84100; 84156; 84300; 85025; 87081; 87086; 96365; 96367; 96372; 96375; 96376; C9113; G0378; J1815; J1956; J2405; J3480; J3490

== ENCOUNTER 2022-05-27 16:01 | Inpatient (IN) | payer MEDICAID ==
[~2022-05-27] VITALS: Ht 154.9 cm; Wt 79.5 kg
[~2022-05-27 16:01] MED LIST changes: -ATOR40TA52 PO; +CAR125T OR; -CARV25TA PO; -FLUT0.05 NAS; -HYDR25TA87 PO; -ISO60SRT PO; +NITR-87 PO; -PANT40TA2 PO; -RANO500T PO; -TICA90TA PO; -[UNRECOGNIZED DRUG - CODE] PO
[2022-05-27 16:32] LABS: Basophils # (auto) 0 10 ^3/uL (0-0.2); Basophils % (auto) 0.3 % (0.0-2.0); Eosinophils # (auto) 0 10 ^3/uL (0-0.8); Eosinophils % (auto) 0.3 % (0.0-7.0); Hematocrit 29.2 % (36.0-46.0); Hemoglobin 9.7 g/dL (12.2-16.2); Lymphocytes # (auto) 1.2 10 ^3/uL (0.4-5.4); Lymphocytes % (auto) 26.3 % (10.0-50.0); Mean Corpuscular Hemoglobin 30.2 pg (28.0-32.0); Mean Corpuscular Hgb Conc. 33.2 g/dL (32.0-36.0); Mean Corpuscular Volume 90.9 fL (80.0-100.0); Monocytes # (auto) 0.3 10 ^3/uL (0-1.3); Monocytes % (auto) 6.7 % (0.0-12.0); Neutrophils # (auto) 3.1 10 ^3/uL (1.6-8.6); Neutrophils % (auto) 66.4 % (37.0-80.0); Nucleated Red Blood Cells % 0.1 %; Red Blood Cells 3.21 10^6/uL (4.0-5.20); Red Cell Distribution Width 12.7 % (11.8-14.3); White Blood Cell 4.7 10^3/uL (4.4-10.8)
[2022-05-27 16:54] LABS: INR 1.04 (0.9-1.15); Partial Thromboplastin Time 28.6 sec (24.6-33.4)
[2022-05-27 17:14] LABS: Albumin 3.5 g/dL (3.4-5.0); Calcium 8.2 mg/dL (8.5-10.1); Potassium 3.8 mmol/L (3.5-5.1)
[2022-05-27 17:17] LABS: BUN/Creatinine Ratio 22.7 (10.0-20.0); Bilirubin, Total 0.3 mg/dL (0.2-1.0); Total Protein 6.9 g/dL (6.4-8.2)
[2022-05-27] MEDS ORDERED: ASPirin 81 mg TAB PO ONE (17:30)
[2022-05-28] MEDS ORDERED: ACETAMINOPHEN 325 MG TAB PO PRN (00:15)
[2022-05-28] MEDS ORDERED: hydrALAZINE HCL 20 MG/ML VL IV PRN (00:15)
[2022-05-28] MEDS ORDERED: amLODIPine BESYLATE 5 MG TAB PO ONE (00:15)
[2022-05-28] MEDS ORDERED: NITROGLYCERIN 0.4 MG SL TAB SL PRN (00:15)
[2022-05-28] MEDS ORDERED: HYDROcodone-ACET 5/325MG TAB PO PRN (00:15)
[2022-05-28] MEDS ORDERED: DOCUSATE SOD 100 MG CAP PO PRN (00:15)
[2022-05-28] MEDS ORDERED: HEPARIN SODIUM (PORCINE) 5000 UNITS/ML 1ML VIAL IV ONE (00:15)
[2022-05-28] MEDS ORDERED: MORPHINE SULFATE INJ 2 MG/ml SYRG IV PRN (00:15)
[2022-05-28] MEDS: SODIUM CHLORIDE 0.9% 1,000 ML IV SCH ×2 (01:33→18:02)
[2022-05-28 05:17] LABS: Basophils # (auto) 0 10 ^3/uL (0-0.2); Basophils % (auto) 0.6 % (0.0-2.0); Eosinophils # (auto) 0.1 10 ^3/uL (0-0.8); Eosinophils % (auto) 1.9 % (0.0-7.0); Hematocrit 29.2 % (36.0-46.0); Hemoglobin 9.9 g/dL (12.2-16.2); Lymphocytes # (auto) 1.7 10 ^3/uL (0.4-5.4); Lymphocytes % (auto) 43.4 % (10.0-50.0); Mean Corpuscular Hemoglobin 30.5 pg (28.0-32.0); Mean Corpuscular Hgb Conc. 33.9 g/dL (32.0-36.0); Mean Corpuscular Volume 90.2 fL (80.0-100.0); Monocytes # (auto) 0.3 10 ^3/uL (0-1.3); Monocytes % (auto) 8.9 % (0.0-12.0); Neutrophils # (auto) 1.7 10 ^3/uL (1.6-8.6); Neutrophils % (auto) 45.2 % (37.0-80.0); Red Blood Cells 3.24 10^6/uL (4.0-5.20); Red Cell Distribution Width 12.6 % (11.8-14.3); White Blood Cell 3.9 10^3/uL (4.4-10.8)
[2022-05-28 05:29] LABS: Albumin 3.7 g/dL (3.4-5.0); Calcium 8.8 mg/dL (8.5-10.1); Potassium 3.9 mmol/L (3.5-5.1)
[2022-05-28 05:34] LABS: BUN/Creatinine Ratio 22.8 (10.0-20.0); Bilirubin, Total 0.4 mg/dL (0.2-1.0); Total Protein 7.6 g/dL (6.4-8.2)
[2022-05-28] MEDS ORDERED: NITROGLYCERIN 0.4 MG SL TAB SL ONE (10:00)
[2022-05-28] MEDS: ASPirin 81 mg TAB PO SCH (10:33)
[2022-05-28] MEDS: amLODIPine BESYLATE 5 MG TAB PO SCH (10:34)
[2022-05-28] MEDS: ATORVASTATIN 20 MG TAB PO SCH (23:05)
[2022-05-28] MEDS: ONDANSETRON HCL 4 MG/2 ML VIAL IV PRN (23:12)
[2022-05-28] MEDS: MORPHINE SULFATE INJ 2 MG/ml SYRG IV PRN (23:13)
[2022-05-29 06:19] LABS: Albumin 2.7 g/dL (3.4-5.0); Calcium 7.8 mg/dL (8.5-10.1); Potassium 3.9 mmol/L (3.5-5.1)
[2022-05-29 06:24] LABS: BUN/Creatinine Ratio 20.8 (10.0-20.0); Bilirubin, Total 0.2 mg/dL (0.2-1.0); Total Protein 5.8 g/dL (6.4-8.2)
[2022-05-29 06:40] LABS: Basophils # (auto) 0 10 ^3/uL (0-0.2); Basophils % (auto) 0.7 % (0.0-2.0); Eosinophils # (auto) 0 10 ^3/uL (0-0.8); Eosinophils % (auto) 1.5 % (0.0-7.0); Hematocrit 25.3 % (36.0-46.0); Hemoglobin 8.7 g/dL (12.2-16.2); Lymphocytes # (auto) 1.1 10 ^3/uL (0.4-5.4); Lymphocytes % (auto) 36.1 % (10.0-50.0); Mean Corpuscular Hemoglobin 30.8 pg (28.0-32.0); Mean Corpuscular Hgb Conc. 34.2 g/dL (32.0-36.0); Mean Corpuscular Volume 90.1 fL (80.0-100.0); Monocytes # (auto) 0.3 10 ^3/uL (0-1.3); Monocytes % (auto) 10.3 % (0.0-12.0); Neutrophils # (auto) 1.6 10 ^3/uL (1.6-8.6); Neutrophils % (auto) 51.4 % (37.0-80.0); Nucleated Red Blood Cells % 0.1 %; Red Blood Cells 2.81 10^6/uL (4.0-5.20); Red Cell Distribution Width 12.6 % (11.8-14.3); White Blood Cell 3.2 10^3/uL (4.4-10.8)
[2022-05-29] MEDS: MORPHINE SULFATE INJ 2 MG/ml SYRG IV PRN (07:23)
[2022-05-29] MEDS: ONDANSETRON HCL 4 MG/2 ML VIAL IV PRN (07:24)
[2022-05-29] MEDS: amLODIPine BESYLATE 5 MG TAB PO SCH (09:32)
[2022-05-29] MEDS: ASPirin 81 mg TAB PO SCH (09:32)
[2022-05-29] MEDS: SODIUM CHLORIDE 0.9% 1,000 ML IV SCH (09:35)
[2022-05-29 17:52] VITALS: BP 111/66
[2022-05-29 20:00] VITALS: BP 137/62
[2022-05-29] MEDS: ATORVASTATIN 20 MG TAB PO SCH (22:00)
[2022-05-30 00:51] VITALS: BP 145/65
[2022-05-30] MEDS: SODIUM CHLORIDE 0.9% 1,000 ML IV SCH (02:15)
[2022-05-30 06:14] VITALS: BP 110/68
[2022-05-30 08:00] VITALS: BP 129/65
[2022-05-30 09:00] VITALS: BP 111/63
[2022-05-30] MEDS: amLODIPine BESYLATE 5 MG TAB PO SCH (10:35)
[2022-05-30] MEDS: ASPirin 81 mg TAB PO SCH (10:36)
[2022-05-30] MEDS ORDERED: AMLO-496 PO (12:38)
[2022-05-30 13:00] VITALS: BP 160/66
[2022-05-30 16:37] VITALS: BP 155/63
== END 2022-05-30 19:30 | disposition home or self-care (01) | DRG 190 ==
LOC: ER 16:01 → TELE 05-28 00:23 → TELE-WESTW 05-29 17:32
PROVIDERS: ADMIT Nurse Practitioner Family; ATTEND Family Medicine
DX: I21.3 ST elevation (STEMI) myocardial infarction of unspecified site (principal); I50.41 Acute combined systolic (congestive) and diastolic (congestive) heart failure; N17.9 Acute kidney failure, unspecified; R64 Cachexia; D69.6 Thrombocytopenia, unspecified; J44.1 Chronic obstructive pulmonary disease with (acute) exacerbation; I13.0 Hypertensive heart and chronic kidney disease with heart failure and stage 1 through stage 4 chronic kidney disease, or unspecified chronic kidney disease; E11.22 Type 2 diabetes mellitus with diabetic chronic kidney disease; E78.00 Pure hypercholesterolemia, unspecified; I16.0 Hypertensive urgency; N18.30 Chronic kidney disease, stage 3 unspecified; Z88.0 Allergy status to penicillin; Z90.710 Acquired absence of both cervix and uterus; Z95.5 Presence of coronary angioplasty implant and graft; Z68.33 Body mass index [BMI] 33.0-33.9, adult; Z82.0 Family history of epilepsy and other diseases of the nervous system; Z82.49 Family history of ischemic heart disease and other diseases of the circulatory system; Z82.5 Family history of asthma and other chronic lower respiratory diseases; Z83.3 Family history of diabetes mellitus
CPT/HCPCS: 36415; 71045; 80053; 84484; 85025; 85610; 85730; 93005; G0378; J2405

== ENCOUNTER 2022-06-29 11:10 | Inpatient (IN) | payer MEDICAID ==
[~2022-06-29] VITALS: Ht 157.5 cm; Wt 50.6 kg
[~2022-06-29 11:10] MED LIST changes: -AMLO-496 PO; +AMLO1TAB23 PO
[2022-06-29] MEDS ORDERED: SODIUM CHLORIDE 0.9% 1,000 ML IV ONE (11:30)
[2022-06-29 11:51] LABS: Basophils # (auto) 0 10 ^3/uL (0-0.2); Basophils % (auto) 0.6 % (0.0-2.0); Eosinophils # (auto) 0 10 ^3/uL (0-0.8); Eosinophils % (auto) 0.2 % (0.0-7.0); Hematocrit 30.2 % (36.0-46.0); Hemoglobin 10.3 g/dL (12.2-16.2); Lymphocytes # (auto) 0.9 10 ^3/uL (0.4-5.4); Lymphocytes % (auto) 16.5 % (10.0-50.0); Mean Corpuscular Hemoglobin 30.3 pg (28.0-32.0); Mean Corpuscular Volume 89.1 fL (80.0-100.0); Monocytes # (auto) 0.3 10 ^3/uL (0-1.3); Monocytes % (auto) 5.4 % (0.0-12.0); Neutrophils # (auto) 4.1 10 ^3/uL (1.6-8.6); Neutrophils % (auto) 77.3 % (37.0-80.0); Nucleated Red Blood Cells % 0.1 %; Red Blood Cells 3.39 10^6/uL (4.0-5.20); Red Cell Distribution Width 12.7 % (11.8-14.3); White Blood Cell 5.3 10^3/uL (4.4-10.8)
[2022-06-29 12:10] LABS: Calcium 8.5 mg/dL (8.5-10.1)
[2022-06-29 12:16] LABS: BUN/Creatinine Ratio 16.3 (10.0-20.0); Bilirubin, Total 0.5 mg/dL (0.2-1.0); Magnesium 2.2 mg/dL (1.6-2.6); Total Protein 7.7 g/dL (6.4-8.2)
[2022-06-29 12:21] LABS: Potassium 2.9 mmol/L (3.5-5.1)
[2022-06-29] MEDS ORDERED: MORPHINE SULFATE INJ 2 MG/ml SYRG IV PRN (13:30)
[2022-06-29] MEDS ORDERED: NITROGLYCERIN 0.4 MG SL TAB SL PRN (13:30)
[2022-06-29] MEDS ORDERED: ALBUTEROL SULF 2.5 MG/0.5ML(0.5%) NEB SOLN NEB PRN (13:30)
[2022-06-29] MEDS ORDERED: POTASSIUM CHL 20 Meq TABLET PO ONE (13:30)
[2022-06-29] MEDS ORDERED: DEXTROSE (50%) 50ML SYRG IV PRN (13:45)
[2022-06-29] MEDS ORDERED: ASPirin 325 MG TAB PO ONE (14:00)
[2022-06-29] MEDS: POTASSIUM CHL 20MEQ/100ML 100 ML IV SCH ×2 (15:58→18:23)
[2022-06-29] MEDS: SODIUM CHLORIDE 0.9% 1,000 ML IV SCH (15:58)
[2022-06-29 16:31] VITALS: BP 118/85
[2022-06-29] MEDS: ACCU-CHEK COMFORT CURVE STRIP VI SCH ×2 (17:00→23:54)
[2022-06-29] MEDS: InsuLIN REG 1unit/0.01ml Soln (100units/ml) SC SCH ×2 (17:00→22:00)
[2022-06-29] MEDS ORDERED: hydrALAZINE HCL 20 MG/ML VL IV PRN (17:30)
[2022-06-29 19:59] LABS: Urine Bacteria FEW /hpf (None Seen); Urine Blood Negative /uL (Negative); Urine WBC 1 /hpf (0 - 5)
[2022-06-29 20:46] LABS: Alcohol, Urine < 3.0 mg/dL (0-10); Amphetamine Screen, Urine NEGATIVE (NEGATIVE); Barbiturate Scree,Urine NEGATIVE (NEGATIVE); Benzodiazephine Screen, Urine NEGATIVE (NEGATIVE); Cannabinoid Screen, Urine NEGATIVE (NEGATIVE); Cocaine Screen, Urine NEGATIVE (NEGATIVE); Phencyclidine Screen, Urine NEGATIVE (NEGATIVE)
[2022-06-29 21:05] LABS: Opiate Scree,Urine NEGATIVE (NEGATIVE)
[2022-06-29] MEDS: Fenofibrate 1 TAB PO SCH (22:00)
[2022-06-29] MEDS: CARVEDILOL 12.5 MG TAB PO SCH (23:40)
[2022-06-29] MEDS: ACETAMINOPHEN 325 MG TAB PO PRN (23:42)
[2022-06-29] MEDS: HEPARIN SODIUM (PORCINE) 5000 UNITS/ML 1ML VIAL SC SCH (23:54)
[2022-06-30] VITALS (8 sets, daily range): BP systolic 81–160; BP diastolic 46–82
[2022-06-30 05:50] LABS: Potassium 3.5 mmol/L (3.5-5.1)
[2022-06-30 05:57] LABS: Albumin 3.1 g/dL (3.4-5.0); BUN/Creatinine Ratio 18.8 (10.0-20.0); Bilirubin, Total 0.3 mg/dL (0.2-1.0); Calcium 7.8 mg/dL (8.5-10.1); Total Protein 6.2 g/dL (6.4-8.2)
[2022-06-30] MEDS: SODIUM CHLORIDE 0.9% 1,000 ML IV SCH (06:10)
[2022-06-30 06:35] LABS: Basophils # (auto) 0 10 ^3/uL (0-0.2); Eosinophils # (auto) 0 10 ^3/uL (0-0.8); Eosinophils % (auto) 1.1 % (0.0-7.0); Hematocrit 25.2 % (36.0-46.0); Hemoglobin 8.8 g/dL (12.2-16.2); Lymphocytes # (auto) 1.2 10 ^3/uL (0.4-5.4); Lymphocytes % (auto) 32.6 % (10.0-50.0); Mean Corpuscular Hemoglobin 31.3 pg (28.0-32.0); Mean Corpuscular Hgb Conc. 34.9 g/dL (32.0-36.0); Mean Corpuscular Volume 89.5 fL (80.0-100.0); Monocytes # (auto) 0.2 10 ^3/uL (0-1.3); Monocytes % (auto) 6.7 % (0.0-12.0); Neutrophils # (auto) 2.1 10 ^3/uL (1.6-8.6); Neutrophils % (auto) 58.6 % (37.0-80.0); Nucleated Red Blood Cells % 0.1 %; Red Blood Cells 2.82 10^6/uL (4.0-5.20); White Blood Cell 3.6 10^3/uL (4.4-10.8)
[2022-06-30] MEDS: InsuLIN REG 1unit/0.01ml Soln (100units/ml) SC SCH ×4 (06:38→22:17)
[2022-06-30] MEDS: ACCU-CHEK COMFORT CURVE STRIP VI SCH ×4 (06:38→22:18)
[2022-06-30] MEDS: ASPirin 81 mg TAB PO SCH (09:02)
[2022-06-30] MEDS: CARVEDILOL 12.5 MG TAB PO SCH ×2 (09:03→21:50)
[2022-06-30] MEDS: amLODIPine BESYLATE 5 MG TAB PO SCH (09:04)
[2022-06-30] MEDS: HEPARIN SODIUM (PORCINE) 5000 UNITS/ML 1ML VIAL SC SCH ×2 (09:13→22:00)
[2022-06-30] MEDS: ACETAMINOPHEN 325 MG TAB PO PRN ×2 (10:55→19:00)
[2022-06-30] MEDS ORDERED: LACTATED RINGER'S 1,000 ML IV ONE (20:00)
[2022-06-30] MEDS: Fenofibrate 1 TAB PO SCH (21:56)
[2022-07-01 05:00] VITALS: BP 136/72
[2022-07-01] MEDS: InsuLIN REG 1unit/0.01ml Soln (100units/ml) SC SCH ×4 (06:08→21:43)
[2022-07-01] MEDS: ACCU-CHEK COMFORT CURVE STRIP VI SCH ×4 (06:08→21:44)
[2022-07-01 07:02] LABS: BUN/Creatinine Ratio 19.6 (10.0-20.0); Calcium 7.5 mg/dL (8.5-10.1); Potassium 3.4 mmol/L (3.5-5.1)
[2022-07-01 09:00] VITALS: BP 144/63
[2022-07-01] MEDS: ACETAMINOPHEN 325 MG TAB PO PRN (09:46)
[2022-07-01] MEDS: amLODIPine BESYLATE 5 MG TAB PO SCH (09:48)
[2022-07-01] MEDS: ASPirin 81 mg TAB PO SCH (09:48)
[2022-07-01] MEDS: CARVEDILOL 12.5 MG TAB PO SCH ×2 (09:49→21:40)
[2022-07-01] MEDS: HEPARIN SODIUM (PORCINE) 5000 UNITS/ML 1ML VIAL SC SCH ×2 (10:00→21:44)
[2022-07-01] MEDS ORDERED: HYDROcodone-ACET 5/325MG TAB PO PRN (11:30)
[2022-07-01 13:00] VITALS: BP 146/68
[2022-07-01 17:00] VITALS: BP 139/64
[2022-07-01] MEDS: Fenofibrate 1 TAB PO SCH (21:44)
[2022-07-01 22:00] VITALS: BP 125/74
[2022-07-02 05:00] VITALS: BP 125/62
[2022-07-02 05:56] LABS: Basophils # (auto) 0 10 ^3/uL (0-0.2); Basophils % (auto) 0.5 % (0.0-2.0); Eosinophils # (auto) 0.1 10 ^3/uL (0-0.8); Eosinophils % (auto) 1.8 % (0.0-7.0); Hematocrit 24.5 % (36.0-46.0); Hemoglobin 8.5 g/dL (12.2-16.2); Lymphocytes # (auto) 1.2 10 ^3/uL (0.4-5.4); Lymphocytes % (auto) 38.9 % (10.0-50.0); Mean Corpuscular Hemoglobin 31.1 pg (28.0-32.0); Mean Corpuscular Hgb Conc. 34.5 g/dL (32.0-36.0); Mean Corpuscular Volume 90.1 fL (80.0-100.0); Monocytes # (auto) 0.3 10 ^3/uL (0-1.3); Monocytes % (auto) 9.2 % (0.0-12.0); Neutrophils # (auto) 1.6 10 ^3/uL (1.6-8.6); Neutrophils % (auto) 49.6 % (37.0-80.0); Nucleated Red Blood Cells % 0.1 %; Red Blood Cells 2.72 10^6/uL (4.0-5.20); Red Cell Distribution Width 13.4 % (11.8-14.3); White Blood Cell 3.2 10^3/uL (4.4-10.8)
[2022-07-02 06:07] LABS: BUN/Creatinine Ratio 21.7 (10.0-20.0); Calcium 7.8 mg/dL (8.5-10.1); Potassium 3.9 mmol/L (3.5-5.1)
[2022-07-02] MEDS: InsuLIN REG 1unit/0.01ml Soln (100units/ml) SC SCH ×4 (06:32→21:40)
[2022-07-02] MEDS: ACCU-CHEK COMFORT CURVE STRIP VI SCH ×4 (06:32→21:42)
[2022-07-02] MEDS: ASPirin 81 mg TAB PO SCH (08:35)
[2022-07-02] MEDS: amLODIPine BESYLATE 5 MG TAB PO SCH (08:36)
[2022-07-02] MEDS: CARVEDILOL 12.5 MG TAB PO SCH ×2 (08:36→21:41)
[2022-07-02 09:00] VITALS: BP 141/66
[2022-07-02] MEDS: HEPARIN SODIUM (PORCINE) 5000 UNITS/ML 1ML VIAL SC SCH ×2 (10:00→21:41)
[2022-07-02 10:20] VITALS: BP 141/66
[2022-07-02 13:00] VITALS: BP 131/67
[2022-07-02 17:00] VITALS: BP 106/52
[2022-07-02] MEDS: Fenofibrate 1 TAB PO SCH (21:42)
[2022-07-02 22:00] VITALS: BP 136/54
[2022-07-03 05:00] VITALS: BP 122/44
[2022-07-03] MEDS: ACCU-CHEK COMFORT CURVE STRIP VI SCH ×4 (06:28→22:03)
[2022-07-03] MEDS: InsuLIN REG 1unit/0.01ml Soln (100units/ml) SC SCH ×4 (06:28→22:05)
[2022-07-03 06:44] LABS: BUN/Creatinine Ratio 23.1 (10.0-20.0); Calcium 8.1 mg/dL (8.5-10.1)
[2022-07-03 09:00] VITALS: BP 120/61
[2022-07-03 09:14] LABS: Basophils # (auto) 0 10 ^3/uL (0-0.2); Basophils % (auto) 0.4 % (0.0-2.0); Lymphocytes # (auto) 1.2 10 ^3/uL (0.4-5.4); Mean Corpuscular Hemoglobin 30.4 pg (28.0-32.0); Monocytes # (auto) 0.3 10 ^3/uL (0-1.3); Neutrophils # (auto) 1.9 10 ^3/uL (1.6-8.6); Neutrophils % (auto) 55.9 % (37.0-80.0)
[2022-07-03 09:15] LABS: Eosinophils # (auto) 0.1 10 ^3/uL (0-0.8); Eosinophils % (auto) 1.8 % (0.0-7.0); Hematocrit 24.6 % (36.0-46.0); Hemoglobin 8.2 g/dL (12.2-16.2); Lymphocytes % (auto) 34.4 % (10.0-50.0); Mean Corpuscular Hgb Conc. 33.3 g/dL (32.0-36.0); Mean Corpuscular Volume 91.4 fL (80.0-100.0); Monocytes % (auto) 7.5 % (0.0-12.0); Red Blood Cells 2.69 10^6/uL (4.0-5.20); Red Cell Distribution Width 13.6 % (11.8-14.3); White Blood Cell 3.4 10^3/uL (4.4-10.8)
[2022-07-03] MEDS: ASPirin 81 mg TAB PO SCH (09:29)
[2022-07-03] MEDS: CARVEDILOL 12.5 MG TAB PO SCH ×2 (09:30→22:07)
[2022-07-03] MEDS: amLODIPine BESYLATE 5 MG TAB PO SCH (09:31)
[2022-07-03] MEDS: ACETAMINOPHEN 325 MG TAB PO PRN (09:31)
[2022-07-03] MEDS: HEPARIN SODIUM (PORCINE) 5000 UNITS/ML 1ML VIAL SC SCH (10:00)
[2022-07-03 13:15] VITALS: BP 133/60
[2022-07-03 17:00] VITALS: BP 115/55
[2022-07-03 20:00] VITALS: BP 135/66
[2022-07-03 22:00] VITALS: BP 135/66
[2022-07-03] MEDS: Fenofibrate 1 TAB PO SCH (22:00)
[2022-07-04] VITALS (7 sets, daily range): BP systolic 114–133; BP diastolic 46–53
[2022-07-04] MEDS: ACCU-CHEK COMFORT CURVE STRIP VI SCH ×4 (06:41→21:56)
[2022-07-04] MEDS: InsuLIN REG 1unit/0.01ml Soln (100units/ml) SC SCH ×4 (06:41→21:57)
[2022-07-04] MEDS: ASPirin 81 mg TAB PO SCH (10:31)
[2022-07-04] MEDS: amLODIPine BESYLATE 5 MG TAB PO SCH (10:32)
[2022-07-04] MEDS: CARVEDILOL 12.5 MG TAB PO SCH ×2 (10:32→21:59)
[2022-07-04] MEDS: Fenofibrate 1 TAB PO SCH (22:00)
[2022-07-05 05:00] VITALS: BP 120/53
[2022-07-05] MEDS: ACCU-CHEK COMFORT CURVE STRIP VI SCH ×4 (06:49→21:50)
[2022-07-05] MEDS: InsuLIN REG 1unit/0.01ml Soln (100units/ml) SC SCH ×4 (06:50→21:58)
[2022-07-05 08:00] VITALS: BP 135/57
[2022-07-05 09:00] VITALS: BP 135/57
[2022-07-05] MEDS: amLODIPine BESYLATE 5 MG TAB PO SCH (11:57)
[2022-07-05] MEDS: ASPirin 81 mg TAB PO SCH (11:57)
[2022-07-05] MEDS: CARVEDILOL 12.5 MG TAB PO SCH ×2 (11:58→21:53)
[2022-07-05 13:00] VITALS: BP 137/59
[2022-07-05 17:55] VITALS: BP 137/59
[2022-07-05 22:00] VITALS: BP 131/67
[2022-07-05] MEDS: Fenofibrate 1 TAB PO SCH (22:00)
[2022-07-06 05:00] VITALS: BP 129/70
[2022-07-06] MEDS: ACCU-CHEK COMFORT CURVE STRIP VI SCH ×2 (06:26→11:19)
[2022-07-06] MEDS: InsuLIN REG 1unit/0.01ml Soln (100units/ml) SC SCH ×2 (06:26→11:24)
[2022-07-06 08:15] VITALS: BP 126/52
[2022-07-06 08:53] VITALS: BP 126/52
[2022-07-06] MEDS: CARVEDILOL 12.5 MG TAB PO SCH (10:09)
[2022-07-06] MEDS: ASPirin 81 mg TAB PO SCH (10:09)
[2022-07-06] MEDS: amLODIPine BESYLATE 5 MG TAB PO SCH (10:10)
[2022-07-06 13:00] VITALS: BP 140/62
== END 2022-07-06 16:37 | DRG 190 ==
LOC: EDBD 11:10 → ER 11:10 → TELE 13:33 → TELE-EAST 22:30 → EAST 07-05 13:45
PROVIDERS: ADMIT Nurse Practitioner Family; ATTEND Internal Medicine
DX: I21.4 Non-ST elevation (NSTEMI) myocardial infarction (principal); N17.0 Acute kidney failure with tubular necrosis; I50.9 Heart failure, unspecified; I13.0 Hypertensive heart and chronic kidney disease with heart failure and stage 1 through stage 4 chronic kidney disease, or unspecified chronic kidney disease; E11.22 Type 2 diabetes mellitus with diabetic chronic kidney disease; E78.5 Hyperlipidemia, unspecified; D64.9 Anemia, unspecified; E87.6 Hypokalemia; E86.0 Dehydration; N18.4 Chronic kidney disease, stage 4 (severe); J44.9 Chronic obstructive pulmonary disease, unspecified; Z82.0 Family history of epilepsy and other diseases of the nervous system; N17.9 Acute kidney failure, unspecified; Z59.00 Homelessness unspecified; E86.9 Volume depletion, unspecified; Z82.49 Family history of ischemic heart disease and other diseases of the circulatory system; Z82.5 Family history of asthma and other chronic lower respiratory diseases; Z83.3 Family history of diabetes mellitus; Z88.0 Allergy status to penicillin; Z90.711 Acquired absence of uterus with remaining cervical stump; Z90.710 Acquired absence of both cervix and uterus; Z98.891 History of uterine scar from previous surgery; Z88.2 Allergy status to sulfonamides; R19.7 Diarrhea, unspecified
CPT/HCPCS: 36415; 71045; 73502; 80048; 80053; 80307; 81001; 82550; 82962; 83605; 83735; 83880; 83930; 84132; 84484; 85025; 93005; 96361; 96374; 97110; 97116; 97163; 97530; G0378; J1815; J3480